=== PATIENT | female | born 1960 | race Caucasian/White ===

== ENCOUNTER 2020-05-09 20:31 | Inpatient (IN) | payer BC, SELFPAY ==
--- NOTE | ~2020-05-09 | XR_ITS ---
EXAMINATION: XR surgery orthopedic DATE: 05/10/2020 18:15 INDICATION: Intraoperative evaluation during right total hip arthroplasty TECHNIQUE: Frontal view of the right hip was obtained. COMPARISON: None. FINDINGS: Intraoperative image during a right total hip arthroplasty demonstrate placement of a femoral broach in expected position. Suggestion of a trial acetabular component which is partially obscured by a sup erimposed bolster. No fractures in the visualized bones. IMPRESSION: 1. Expected appearance during right total hip arthroplasty. Reviewed, dictated and finalized at location A.
--- NOTE | ~2020-05-09 | XR_ITS ---
EXAMINATION: XR forearm RT 2V DATE: 05/12/2020 13:32 INDICATION: Right forearm pain. Fall. TECHNIQUE: 2 views of right forearm were obtained. COMPARISON: Right elbow radiographs 05/10/2020 FINDINGS: Bone alignment is normal. There is a transverse fracture of the junction of radial head and neck with mild impaction. Joint spaces are normal. There is an elbow joint effusion. IMPRESSION: 1. Transverse fracture of the junction of radial head and neck with mild impaction. 2. Elbow joint effusion. Reviewed, dictated and finalized at location A. IMPRESSION: 1. Transverse fracture of the junction of radial head and neck with mild impact ion. 2. Elbow joint effusion.
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
--- NOTE | ~2020-05-09 | XR_ITS ---
EXAMINATION: XR elbow RT 2V DATE: 05/10/2020 09:24 INDICATION: Posterior right elbow pain. Fall. TECHNIQUE: 2 views of right elbow on 3 radiographs were obtained. COMPARISON: None. FINDINGS: Bone alignment is normal. There is a nondisplaced fracture of the junction of radial head a nd neck. Joint spaces are normal. There is an elbow joint effusion. IMPRESSION: 1. Nondisplaced fracture of the junction of radial head and neck. 2. Elbow joint effusion. Reviewed, dictated and finalized at location A.
--- NOTE | ~2020-05-09 | XR_ITS ---
EXAMINATION: XR hip RT 2V w AP pelvis DATE: 05/09/2020 21:24 INDICATION: Right hip pain post fall TECHNIQUE: Anteroposterior view of the pelvis and anteroposterior and cross-table lateral views of th e right hip were obtained. COMPARISON: None. FINDINGS: Basocervical fracture at the proximal right femur. There is proximal migration resulting in varus ang ulation along with external rotation. No other fractures identified. Mild bilateral hip osteoarthriti s. Moderate lower lumbar spondylosis. IMPRESSION: 1. Displaced and rotated basicervical fracture of the proximal right femur. Reviewed, dictated and finalized at location A.
--- NOTE | ~2020-05-09 | CT_ITS ---
EXAMINATION: CT hip RT wo con DATE: 05/09/2020 23:21 INDICATION: Right hip fracture. Possible lytic lesion on x-ray. TECHNIQUE: High resolution computed tomography (CT) of the right hip was performed without intravenou s contrast. Additional sagittal and coronal reconstructions were performed. Automated exposure contro l and iterative reconstruction technique were employed. The dose-length product was 238.10 mGy-cm. COMPARISON: None FINDINGS: Mild comminution along a basicervical fracture of the proximal right femur. There is approximately 2 cm proximal migration as well as external rotation with 25 degrees posterior angulation of the main d istal fragment relative to the proximal femoral head and neck fragment. No underlying lytic or blasti c bone lesions. Right femoral head remains normally centered in the right acetabulum with mild osteoa rthritis. No right hip joint effusion. No other fractures identified. Visualized portions of the meño ls including the appendix are unremarkable. Bladder and anteverted uterus are unremarkable. No free f luid in the pelvis. IMPRESSION: 1. Proximal migration and external rotation and a mildly comminuted basicervical fracture the proxima l right femur. No underlying lytic or blastic bone lesions. Reviewed, dictated and finalized at location A. IMPRESSION: 1. Proximal migration and external rotation and a mildly comminuted basicervica l fracture the proximal right femur. No underlying lytic or blastic bone lesion s.
--- NOTE | ~2020-05-09 | XR_ITS ---
EXAMINATION: XR hip RT min 2V DATE: 05/10/2020 19:45 INDICATION: Bipolar type right hip hemiarthroplasty. TECHNIQUE: Anteroposterior and cross-table lateral views of the right hip were obtained. COMPARISON: Intraoperative image dated 05/10/2020 at 6:09 PM FINDINGS: The previously seen femoral broach has been replaced with a bipolar type right hip hemiarthroplasty w hich is in near anatomic alignment. No fracture. Reyes catheter. Soft tissues are unremarkable. IMPRESSION: 1. Bipolar type right hip hemiarthroplasty in near-anatomic alignment. Reviewed, dictated and finalized at location A.
[2020-05-09 20:30] VITALS: BP 190/85; PULSE 120; RESP 20; TEMP 36.5; O2SAT 93
--- NOTE | 2020-05-09 20:36 | ECG_ITS ---
Measurements Intervals [place] Rate: 99 P: 61 VA: 159 QRS: 59 QRSD: 94 T: 52 QT: 329 QTc: 424 Interpretive Statements SINUS RHYTHM EARLY PRECORDIAL R/S TRANSITION BORDERLINE ST ABNORMALITY- INFERIOR LEADS BORDERLINE ECG Electronically Signed On 05-10-2020 6:57:46 CDT by Keith Vila D.O.
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
[2020-05-09] MEDS: ONDANSETRON INJ 4 MG/2 ML VIAL IV PUSH (20:42)
[2020-05-09 21:00] LABS: Basophils Percent Auto 0.5 % (0.2-1.2); Eosinophils Absolute Auto 0.2 K/mm3 (0-0.3); Eosinophils Percent Auto 2.6 % (0-4.4); Hematocrit 38.2 % (37.0-47.0); Hemoglobin 13.1 g/dL (12.0-15.0); Immature Granulocyte Absolute 0.04 K/mm3 (0.00-0.031); Immature Granulocyte Percent A 0.5 % (0-0.5); Lymphocytes Absolute Auto 1.83 K/mm3 (0.9-3.2); Lymphocytes Percent Auto 23.6 % (18.3-44.2); Mean Corpuscular HGB Conc 34.3 g/dl (32-36); Mean Corpuscular Hemoglobin 31.6 pg (26-34); Mean Corpuscular Volume 92.3 fl (80-100); Mean Platelet Volume 10.5 fl (7.4-10.4); Monocytes Absolute Auto 0.6 K/mm3 (0.1-0.6); Monocytes Percent Auto 7.9 % (2.6-8.5); Neutrophils Absolute Auto 5.1 K/mm3 (1.3-6.7); Neutrophils Percent Auto 64.9 % (45.5-73.1); Platelet Count Result 202 k/mm3 (150-375); Red Blood Count 4.14 M/mm3 (4.2-5.4); Red Cell Distribution Width 12.1 % (11.5-14.5); White Blood Count 7.8 K/mm3 (4.5-10.0)
[2020-05-09 21:07] LABS: INR 1.1; Prothrombin Time 13.7 Seconds (11.1-14.7)
[2020-05-09 21:08] LABS: Partial Thromboplastin Time 23.8 SECONDS (22.3-36.8)
[2020-05-09 21:09] LABS: Alanine Aminotransferase 22 U/L (4-35); Albumin Level 4.4 g/dL (3.5-5.1); Alkaline Phosphatase 57 U/L (38-126); Anion Gap 8 mmol/L (8-16); Aspartate Amino Transferase 23 U/L (14-36); Bilirubin,Total 0.4 mg/dL (0.2-1.3); Blood Urea Nitrogen 17 mg/dL (7-17); Calcium 9.6 mg/dL (8.4-10.2); Carbon Dioxide 24 mmol/L (22-30); Chloride 105 mmol/L (98-107); Estimated CRCL calculation 74 ml/min; Estimated Glomerular Filt Rate > 60; Glucose 114 mg/dL (65-105); Potassium 3.9 mmol/L (3.4-5.0); Sodium 137 mmol/L (137-145)
[2020-05-09 21:46] VITALS: BP 156/69; PULSE 98; RESP 18; O2SAT 97
[2020-05-09 22:19] VITALS: BP 135/72; PULSE 96; RESP 16; O2SAT 92
[2020-05-09 23:20] VITALS: BP 107/82; PULSE 96; RESP 16; O2SAT 95
[2020-05-10] VITALS (16 sets, daily range): BP systolic 120–155; BP diastolic 62–85; PULSE 79–110; RESP 16–20; TEMP 36.1–37.2; O2SAT 93–100; BMI 25.0
--- NOTE | 2020-05-10 01:14 | ADMGEN ---
This patient, Maryana Maria, was admitted to [facility] Surg Room 322-01. Patient/family oriented to hospital policies and general routines including ID bracelet, bed and alarms, visiting hours, pain management, procedures, bathroom and other care routines, personal items, smoking policy, room service/diet, and visiting hours. Valuables list has been completed. Information on how to activate the Rapid Response Team has been discussed. Patient/Family are encouraged to report perceived risks to care and to ask questions if they do not understand what they are told or what they should do.
[2020-05-10] MEDS: SODIUM CHLORIDE 0.9% IV 1,000 ML 125 ML IV CONT ×3 (01:23→21:03)
[2020-05-10] MEDS: ONDANSETRON INJ 4 MG/2 ML VIAL IV PUSH ×3 (02:00→11:05)
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
--- NOTE | 2020-05-10 14:32 | PC.NURSE ---
To OR per BED IV INFUSING WITHOUT DIFFIUCTLY [ ], I
[2020-05-10] MEDS: LACTATED RINGERS 1,000 ML 30 ML IV CONT ×2 (14:55→19:09)
--- NOTE | 2020-05-10 14:57 | WPDANESEPPF ---
Anes - Initial Pre Proc Eval Procedure: Operation Date: 05/10/20 16:00 Proposed Procedures p Right Bipolar Hip Replacement - Teo Myrick MD Date/Time: 05/10/20 14:57 Surgeon: Teo Myrick MD Pre Op Diagnosis: right closed femoral neck fracture Patient Data Age: 60 Gender: F Height: 5 ft 8 in Weight: 74.7 kg Last Vital Signs Temp 36.7 C 05/10/20 14:00 Pulse 80 05/10/20 14:00 Resp 18 05/10/20 14:00 BP 120/62 05/10/20 14:00 Pulse Ox 100 05/10/20 14:00 Allergies Allergy/AdvReac Type Severity Reaction Status Date / Time No Known Allergies Allergy Verified 05/10/20 14:55 Home Medications Medication Instructions Recorded Confirmed Type No Home Medications 05/09/20 05/10/20 History Laboratory Tests 05/09/20 05/09/20 05/09/20 20:52 20:52 20:52 WBC 7.8 K/mm3 K/mm3 (4.5-10.0) RBC 4.14 M/mm3 L M/mm3 (4.2-5.4) Hgb 13.1 g/dL g/dL (12.0-15.0) Hct 38.2 % % (37.0-47.0) MCV 92.3 fl fl (80-100) MCH 31.6 pg pg (26-34) MCHC 34.3 g/dl g/dl (32-36) RDW 12.1 % % (11.5-14.5) Plt Count 202 k/mm3 k/mm3 (150-375) MPV 10.5 fl H fl (7.4-10.4) Immature Gran % (Auto) 0.5 % % (0-0.5) Neut % (Auto) 64.9 % % (45.5-73.1) Lymph % (Auto) 23.6 % % (18.3-44.2) [place] % (Auto) 7.9 % % (2.6-8.5) Eos % (Auto) 2.6 % % (0-4.4) Baso % (Auto) 0.5 % % (0.2-1.2) Lymph # (Auto) 1.83 K/mm3 K/mm3 (0.9-3.2) [place] # (Auto) 0.6 K/mm3 K/mm3 (0.1-0.6) Eos # (Auto) 0.2 K/mm3 K/mm3 (0-0.3) Baso # (Auto) 0.0 K/mm3 K/mm3 (0.0-0.1) Abs Immat Gran (auto) 0.04 K/mm3 H K/mm3 (0.00-0.031) Absolute Neuts (auto) 5.1 K/mm3 K/mm3 (1.3-6.7) Absolute Nucleated RBC 0.0 K/mm3 K/mm3 (0.0-0.012) Nucleated RBC % 0.0 % % (0.0-0.2) PT 13.7 Seconds Seconds (11.1-14.7) INR 1.1 APTT 23.8 SECONDS SECONDS (22.3-36.8) Sodium 137 mmol/L mmol/L (137-145) Potassium 3.9 mmol/L mmol/L (3.4-5.0) Chloride 105 mmol/L mmol/L (98-107) Carbon Dioxide 24 mmol/L mmol/L (22-30) Anion Gap 8 mmol/L mmol/L (8-16) BUN 17 mg/dL mg/dL (7-17) Creatinine 0.70 mg/dL mg/dL (0.7-1.0) Estim Creat Clear Calc 74 ml/min ml/min Estimated GFR > 60 (59 - ) Glucose 114 mg/dL H mg/dL (65-105) Calcium 9.6 mg/dL mg/dL (8.4-10.2) Total Bilirubin 0.4 mg/dL mg/dL (0.2-1.3) AST 23 U/L U/L (14-36) ALT 22 U/L U/L (4-35) Alkaline Phosphatase 57 U/L U/L (38-126) Total Protein 7.0 g/dL g/dL (6.3-8.2) Albumin 4.4 g/dL g/dL (3.5-5.1) Blood Type Antibody Screen 05/10/20 08:08 WBC RBC Hgb Hct MCV MCH MCHC RDW Plt Count MPV Immature Gran % (Auto) Neut % (Auto) Lymph % (Auto) [place] % (Auto) Eos % (Auto) Baso % (Auto) Lymph # (Auto) [place] # (Auto) Eos # (Auto) Baso # (Auto) Abs Immat Gran (auto) Absolute Neuts (auto) Absolute Nucleated RBC Nucleated RBC % PT INR APTT Sodium Potassium Chloride Carbon Dioxide Anion Gap BUN Creatinine Estim Creat Clear Calc Estimated GFR Glucose Calcium Total Bilirubin AST ALT Alkaline Phosphatase Total Protein Albumin Blood Type A Negative Antibody Screen Negative Patient hx anesthesia problems: none Family hx anesthesia problems: none [facility] Past Medical History Medical History (Updated 05/10/20 @ 08:50 by Harris Wang
[2020-05-10] MEDS: SCOPOLAMINE 1.5 MG PATCH TRANSDERM (15:11)
[2020-05-10] MEDS: diphenhydrAMINE HCl INJ 50 MG/ML VIAL 25 MG IV PUSH (15:12)
[2020-05-10] MEDS: ceFAZolin 2 GM/D5W 50 ML 2 GM/50 ML BAG IVPB (16:53)
[2020-05-10] MEDS: TRANEXAMIC ACID 1,000 MG/10 ML AMPUL 1000 MG IV PUSH (17:12)
[2020-05-10] MEDS: BUPIVACAINE/EPINEPHRINE 0.25% 50 ML VIAL 40 ML INFILTRATE (17:38)
[2020-05-10] MEDS: SODIUM CHLORIDE 0.9% IV 50 ML, TRANEXAMIC ACID 1,000 MG TOPICAL (18:32)
--- NOTE | 2020-05-10 19:17 | P.OP_ITS ---
Procedure Note - Detailed Date of procedure: 05/10/20 Pre-op diagnosis: right closed femoral neck fracture Post-op diagnosis: same Procedure performed: right bipolar hip replacement Description of procedure: The patient was identified and proper site identified, then taken back to the operating room and transferred to the OR table. After general anesthetic induction and intubation, the patient was positioned in the left lateral decubitus position in the usual manner for a right hip procedure, and secured with padded hip positioner making sure the torso and extremities were properly padded. The right lower extremity was prepped and draped in the usual sterile fashion. A curvilinear incision was made over the greater trochanter and sharp dissection carried down through the subcutaneous tissue to the gluteus fascia and IT band which were divided in line with the incision. The anterior 1/2 of the abductors were sharply dissected off the greater trochanter developing the interval between the abductors and the capsule. The c apsule was divided in an inverted-T fashion exposing the fracture site. A neck cut was made about one fingerbreadth above the level of the lesser trochanter. Head fragment was removed and the acetabulum cleared of debris. The acetabulum was sized to 47 mm. The proximal femur was prepared for the size Press-Fit 11 which was verified radiographically. A real size 11 collared stem was seated. Through trialing it was noted that a 28+ 0 head with 47 cup configuration gave synagogue of leg lengths with excellent stability. The neck of the femoral component was cleaned and dried and the real components in those sizes were attached to the femoral stem. After final thorough lavage of the joint, the hip was again reduced. The capsule and linden-incisional tissues were infiltrated with 50 mL of 0.25% Marcaine and epinephrine solution. 1 g of tranexamic acid was placed deep in the wound. The capsule was repaired with #2 Ethibond suture. The abductors were repaired to the greater trochanter with #5 Ethibond suture passed through a bony bridge. The deep fascia was reapproximated with 0 looped PDS suture. Deeper layers of the subcu reapproximated with 0 looped PDS. 2-0 strata fix and tissue adhesive were used for the skin, and a sterile dressing was applied. Procedure was well tolerated and there were no known intraoperative complications. [facility] Surgeon: Teo Myrick MD Child Support Agent: Kenneth Estimated blood loss (mL): 400 Drains: No Packing: No Pathology: yes ( femoral head and neck fragments) Complications: No immediate complications Condition: stable Disposition: PACU
[2020-05-10] MEDS: ACETAMINOPHEN 325 MG TABLET 650 MG PO (21:05)
[2020-05-11] VITALS (8 sets, daily range): BP systolic 117–146; BP diastolic 49–64; PULSE 64–88; RESP 16; TEMP 36.7–37.2; O2SAT 90–100
[2020-05-11] MEDS: FAMOTIDINE 20 MG TABLET PO ×3 (00:55→20:48)
[2020-05-11] MEDS: KETOROLAC 15 MG/ML VIAL (*BKC) IV PUSH ×3 (00:56→12:58)
[2020-05-11] MEDS: ceFAZolin 2 GM/D5W 50 ML 2 GM/50 ML BAG IVPB ×3 (00:57→17:30)
[2020-05-11] MEDS: ACETAMINOPHEN 325 MG TABLET 650 MG PO ×3 (01:22→17:58)
[2020-05-11] MEDS: SODIUM CHLORIDE 0.9% IV 1,000 ML 125 ML IV CONT (05:17)
[2020-05-11 06:13] LABS: Basophils Percent Auto 0.1 % (0.2-1.2); Hematocrit 35.3 % (37.0-47.0); Hemoglobin 11.5 g/dL (12.0-15.0); Immature Granulocyte Absolute 0.01 K/mm3 (0.00-0.031); Immature Granulocyte Percent A 0.1 % (0-0.5); Lymphocytes Absolute Auto 0.71 K/mm3 (0.9-3.2); Lymphocytes Percent Auto 8.3 % (18.3-44.2); Mean Corpuscular HGB Conc 32.6 g/dl (32-36); Mean Corpuscular Hemoglobin 31.9 pg (26-34); Mean Corpuscular Volume 97.8 fl (80-100); Mean Platelet Volume 11.3 fl (7.4-10.4); Monocytes Absolute Auto 0.8 K/mm3 (0.1-0.6); Monocytes Percent Auto 9.7 % (2.6-8.5); Neutrophils Percent Auto 81.8 % (45.5-73.1); Platelet Count Result 154 k/mm3 (150-375); Red Blood Count 3.61 M/mm3 (4.2-5.4); Red Cell Distribution Width 12.2 % (11.5-14.5); White Blood Count 8.6 K/mm3 (4.5-10.0)
[2020-05-11 06:26] LABS: Anion Gap 5 mmol/L (8-16); Blood Urea Nitrogen 7 mg/dL (7-17); Calcium 8.4 mg/dL (8.4-10.2); Carbon Dioxide 26 mmol/L (22-30); Chloride 105 mmol/L (98-107); Estimated CRCL calculation 101 ml/min; Estimated Glomerular Filt Rate > 60; Glucose 110 mg/dL (65-105); Potassium 4.3 mmol/L (3.4-5.0); Sodium 136 mmol/L (137-145)
--- NOTE | 2020-05-11 08:59 | WPDANESPN ---
Anes - Prog Note Post-Op Date/Time: 05/11/20 08:59 Cardiovascular status: normal Respiratory status: normal Airway patency: baseline Mental status: baseline Post-Op hydration status: normal Vital Signs: Last Vital Signs Temp 36.7 C 05/11/20 06:00 Pulse 64 05/11/20 06:00 Resp 16 05/11/20 06:00 BP 129/58 L 05/11/20 06:00 Pulse Ox 90 05/11/20 06:16 I/O: Intake & Output 05/10/20 05/11/20 05/11/20 23:59 07:59 15:59 Intake Total 50 1290 Output Total 800 1225 Balance -750 65 Laboratory Tests 05/11/20 05:47 05/11/20 05:47 05/10/20 05/11/20 05/11/20 08:08 05:47 05:47 WBC 8.6 RBC 3.61 L Hgb 11.5 L Hct 35.3 L MCV 97.8 D MCH 31.9 MCHC 32.6 RDW 12.2 Plt Count 154 MPV 11.3 H Immature Gran % (Auto) 0.1 Neut % (Auto) 81.8 H Lymph % (Auto) 8.3 L [place] % (Auto) 9.7 H Eos % (Auto) 0.0 Baso % (Auto) 0.1 L Lymph # (Auto) 0.71 L [place] # (Auto) 0.8 H Eos # (Auto) 0.0 Baso # (Auto) 0.0 Abs Immat Gran (auto) 0.01 Absolute Neuts (auto) 7.0 H Absolute Nucleated RBC 0.0 Nucleated RBC % 0.0 Sodium 136 L Potassium 4.3 Chloride 105 Carbon Dioxide 26 Anion Gap 5 L BUN 7 D Creatinine 0.50 L Estim Creat Clear Calc 101 Estimated GFR > 60 Glucose 110 H Calcium 8.4 Blood Type A Negative Antibody Screen Negative Post-procedural complaints: none Patient Feedback: Patient satisfied with anesthetic care.
--- NOTE | 2020-05-11 11:22 | PM.PNORT ---
Progress Note: A&P Assessment and Plan (1) Closed basicervical fracture of neck of right femur: Qualifiers: Encounter type: initial encounter Fracture alignment: displaced Qualified Code(s): S72.041A - Displaced fracture of base of neck of right femur, initial encounter for closed fracture Code(s): S72.041A - Displaced fracture of base of neck of right femur, initial encounter for closed fracture Status: Acute Assessment and Plan: 60-year-old female with a right bipolar hip replacement for displaced femoral neck fracture. Surgery was discussed with her in detail. PT and OT have been initiated. TRC consult is underway. I think that she just has a forearm contusion and does not have an acute radial head fracture. Currently using Xarelto for DVT prophylaxis. She is getting scheduled Tylenol and then for narcotic, p.r.n. oxycodone. I appreciate the hospitalist input. Subjective Subjective Date/Time Seen: 05/11/20 11:22 Post Op day: 1 Principal diagnosis: Status post right bipolar hip replacement Interval history: 60-year-old female postop day one right bipolar hip replacement. Experiencing some hip discomfort on the right and forearm discomfort on the right. Had a decent night though. Review of Systems Constitutional: Constitutional: Denies chills and Denies fever(s) Eyes: Eyes: Reports no additional eye complaints ENT: Reports system reviewed and no additional complaints, except as documented Cardiovascular: Cardiovascular: Denies chest pain and Denies dyspnea on exertion Respiratory: Respiratory: Reports no additional respiratory complaints and Denies dyspnea on exertion Gastrointestinal: Gastrointestinal: Denies abdominal pain and Denies bloating Exam Const: General: cooperative, no acute distress and alert Nutritional Appearance: other Orientation/consciousness: patient oriented x3 Limitations: no limitations HENMT: Head: normal to inspection Ears: hearing grossly normal bilaterally Face and sinus: face symmetric Mouth: Yes moist mucous membranes Teeth and gingiva: fair dentition Eyes: Alignment and Position: alignment normal and position normal Sclera: sclerae normal Neck: Neck: normal visual inspection and nontender Chest: Chest palpation & inspection: normal inspection of the chest Resp: Effort & Inspection: normal respiratory effort and able to speak in complete sentences GI: Inspection: other ( nontender, nondistended) Skin: General skin exam: normal color Rashes: no rashes Neuro: General: patient oriented x3 Cognition (Neuro): normal cognition Speech: normal speech Gait exam (Neuro): Other gait observations present Motor exam (neuro): Other motor observations present ( no focal motor or sensory deficit in extremities) Sensory Exam: normal sensation Extrem: General: normal to inspection and other Other: Exam of her right forearm reveals some bruising and tenderness particularly dorsally. No tenderness along the osseous portion of the proximal radius or ulna. (I am aware of the elbow x-ray report however looking at it myself I think that what we are seeing is actually little bit of spur at the margin of the radial head.) Neurovascular status to the right upper extremity is unremarkable. In the right lower extremity, there are no sensory deficits. She has grossly intact motor function however exam limited secondary to her discomfort about the right hip. Right hip incision is clean and dry with no erythema and very little swelling noted. Calves nontender. Psych: Appearance: grossly normal Mental Status: mental status grossly normal Objective Data Vital Signs Vital Signs: Vital Signs - 24 hr 05/10/20 14:00 05/10/20 14:55 05/10/20 19:09 Temperature 98.1 F 97.9 F 97 F L Pulse Rate 80 95 97 Respiratory Rate 18 16 19 Blood Pressure 120/62 150/70 H 133/76 Pulse Oximetry 100 100 100 05/10/20 19:24 05/10/20 19:34 05/10/20 19:49 Temperature Pulse Ra
[2020-05-11] MEDS: DOCUSATE SODIUM 100 MG CAPSULE PO ×2 (12:57→17:47)
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
[2020-05-11] MEDS: RIVAROXABAN 10 MG TABLET PO (17:47)
[2020-05-12] MEDS: ACETAMINOPHEN 325 MG TABLET 650 MG PO ×4 (00:08→15:38)
[2020-05-12 06:00] VITALS: BP 139/60; PULSE 90; RESP 16; TEMP 37.2; O2SAT 98
[2020-05-12 08:00] VITALS: PULSE 90; RESP 16; O2SAT 98
--- NOTE | 2020-05-12 08:42 | PCPTNOTE ---
Spoke w/ Dr Myrick. Stated okay to be WBAT on RUE and ice as needed.
[2020-05-12] MEDS: FAMOTIDINE 20 MG TABLET PO (09:10)
[2020-05-12] MEDS: DOCUSATE SODIUM 100 MG CAPSULE PO ×2 (09:10→15:39)
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
--- NOTE | 2020-05-12 13:07 | PM.PNORT ---
Progress Note: A&P Assessment and Plan (1) Forearm contusion: Qualifiers: Encounter type: subsequent encounter Laterality: right Qualified Code(s): S50.11XD - Contusion of right forearm, subsequent encounter Code(s): S50.10XA - Contusion of unspecified forearm, initial encounter Status: Acute Assessment and Plan: Check right forearm x-ray today. Still okay to go to the [facility]. (2) Closed basicervical fracture of neck of right femur: Qualifiers: Encounter type: initial encounter Fracture alignment: displaced Qualified Code(s): S72.041A - Displaced fracture of base of neck of right femur, initial encounter for closed fracture Code(s): S72.041A - Displaced fracture of base of neck of right femur, initial encounter for closed fracture Status: Acute Assessment and Plan: Transfer to the [facility] to continue rehab. Discussed fully with the patient and her . I will follow her there as well. Subjective Subjective Date/Time Seen: 05/12/20 13:07 Post Op day: 2 Principal diagnosis: Status post right bipolar replacement Interval history: 60-year-old female postop day two right bipolar replacement. Significant improvement from yesterday. Is still experiencing pain in her right hip but also in her right distal forearm. Right elbow is nontender. Review of Systems Review of Systems: All systems reviewed & are unremarkable except as noted in HPI and below Constitutional: Constitutional: Denies chills and Denies fever(s) Eyes: Eyes: Reports no additional eye complaints ENT: Reports system reviewed and no additional complaints, except as documented Cardiovascular: Cardiovascular: Denies chest pain and Denies dyspnea on exertion Respiratory: Respiratory: Reports no additional respiratory complaints and Denies dyspnea on exertion Gastrointestinal: Gastrointestinal: Denies abdominal pain and Denies bloating Exam Const: General: cooperative, no acute distress and alert Nutritional Appearance: other Orientation/consciousness: patient oriented x3 Limitations: no limitations HENMT: Head: normal to inspection Ears: hearing grossly normal bilaterally Face and sinus: face symmetric Mouth: Yes moist mucous membranes Teeth and gingiva: fair dentition Eyes: Alignment and Position: alignment normal and position normal Sclera: sclerae normal Neck: Neck: normal visual inspection and nontender Chest: Chest palpation & inspection: normal inspection of the chest Resp: Effort & Inspection: normal respiratory effort and able to speak in complete sentences GI: Inspection: other Skin: General skin exam: normal color Rashes: no rashes Neuro: General: patient oriented x3 Cognition (Neuro): normal cognition Speech: normal speech Gait exam (Neuro): Other gait observations present Motor exam (neuro): Other motor observations present ( No focal motor deficit right lower extremity) Sensory Exam: normal sensation Extrem: General: normal to inspection and other Other: Exam of the right hip wound shows it to be well apposed with no drainage. No erythema and only minimal swelling appreciated. Calves negative. Tenderness in the right distal forearm radial aspect particularly with supination. Specifically no tenderness to palpation proximally over the radial head and neck. Neurovascular status right upper extremity intact. Right forearm compartment supple. Extensive bruising in the right forearm Psych: Appearance: grossly normal Mental Status: mental status grossly normal Objective Data Vital Signs Vital Signs: Vital Signs - 24 hr 05/11/20 14:00 05/11/20 20:00 05/11/20 21:46 Temperature 98.9 F 98.2 F Pulse Rate 88 88 83 Respiratory Rate 16 16 16 Blood Pressure 134/55 L 117/49 L Pulse Oximetry 100 100 99 05/12/20 06:00 05/12/20 08:00 Temperature 99.0 F Pulse Rate 90 90 Respiratory Rate 16 16 Blood Pressure 139/60 Pulse Oximetry 98 98 Intake/Out
--- NOTE | 2020-05-12 13:21 | PM.DS ---
DS: Admitting Diagnosis Admitting Diagnosis Admitting Diagnosis: right closed femoral neck fracture DS: Discharge Diagnosis Discharge Diagnosis (1) Closed basicervical fracture of neck of right femur: Qualifiers: Encounter type: initial encounter Fracture alignment: displaced Qualified Code(s): S72.041A - Displaced fracture of base of neck of right femur, initial encounter for closed fracture Code(s): S72.041A - Displaced fracture of base of neck of right femur, initial encounter for closed fracture Status: Acute (2) Forearm contusion: Qualifiers: Encounter type: subsequent encounter Laterality: right Qualified Code(s): S50.11XD - Contusion of right forearm, subsequent encounter Code(s): S50.10XA - Contusion of unspecified forearm, initial encounter Status: Acute Assessment and Plan: transfer to [facility] to continue rehab. Checking right forearm x-ray. DS: Summary Hospital Course Reason for hospitalization: For surgical repair of right hip fracture Hospital Course: following the patient's surgery she was admitted to the floor and began therapy. She made good progress and is going to be transferred to the rehab floor Status at Discharge Cognitive/behavioral status at discharge: alert and oriented Functional status at discharge: uses cane/walker Overall status at discharge: patient is progressing back to baseline Time Spent with Patient Time attestation: Total time spent providing and/or coordinating discharge services: Exam Const: General: cooperative, no acute distress and alert Nutritional Appearance: other Orientation/consciousness: patient oriented x3 Limitations: no limitations HENMT: Head: normal to inspection Ears: hearing grossly normal bilaterally Face and sinus: face symmetric Mouth: Yes moist mucous membranes Teeth and gingiva: fair dentition Eyes: Alignment and Position: alignment normal and position normal Sclera: sclerae normal Neck: Neck: normal visual inspection and nontender Chest: Chest palpation & inspection: normal inspection of the chest Resp: Effort & Inspection: normal respiratory effort and able to speak in complete sentences GI: Inspection: other Skin: General skin exam: normal color Rashes: no rashes Neuro: General: patient oriented x3 Cognition (Neuro): normal cognition Speech: normal speech Gait exam (Neuro): Other gait observations present Motor exam (neuro): Other motor observations present ( No focal motor deficit right lower extremity) Sensory Exam: normal sensation Extrem: General: normal to inspection and other Other: Exam of the right hip wound shows it to be well apposed with no drainage. No erythema and only minimal swelling appreciated. Calves negative. Tenderness in the right distal forearm radial aspect particularly with supination. Specifically no tenderness to palpation proximally over the radial head and neck. Neurovascular status right upper extremity intact. Right forearm compartment supple. Extensive bruising in the right forearm Psych: Appearance: grossly normal Mental Status: mental status grossly normal DS: Data Data Completed and Pending Pending studies at discharge: Pending at discharge 05/10/20 17:48 Surgical [PTH] Routine Discharge Plan Discharge Consulting providers: Rima Silva ; Teo Myrick ; Reagan Marques Discharging Clinician: Teo Myrick Anticipated Discharge Date/Time: 05/12/20 13:14 Patient Disposition: Inpatient Rehab Facility Activity: may shower and other - see discharge instructions Diet: regular Wound Care Instructions: remove dressing to shower Discharge Instructions: 3 times daily for 20 minutes each time, reclining in bed with ice packs over the incision and a pillow underneath the affected calf. Your wound is glued so it is okay to get into the shower and get the wound wet. Be sure to read through all the information that narinder
[2020-05-12 14:00] VITALS: BP 118/54; PULSE 89; RESP 16; TEMP 37; O2SAT 99
[2020-05-12] MEDS: RIVAROXABAN 10 MG TABLET PO (15:38)
== END 2020-05-12 15:45 | DRG 470 ==
LOC: ANHED 23:48 → ANH3MEDSUR 05-10 00:14
PROVIDERS: Admitting Provider Orthopaedic Surgery; Emergency Provider General Practice; Visit Provider Orthopaedic Surgery
PROC: 0SRR01A Replacement of Right Hip Joint, Femoral Surface with Metal Synthetic Substitute, Uncemented, Open Approach (ICD-10-PCS; CPT 27125; principal; 2020-05-10 16:00)
DX: S72.041A Displaced fracture of base of neck of right femur, initial encounter for closed fracture (principal); R03.0 Elevated blood-pressure reading, without diagnosis of hypertension; S50.11XA Contusion of right forearm, initial encounter; R09.02 Hypoxemia; T40.605A Adverse effect of unspecified narcotics, initial encounter; Z87.891 Personal history of nicotine dependence; V19.9XXA Pedal cyclist (driver) (passenger) injured in unspecified traffic accident, initial encounter; Y93.55 Activity, bike riding
CPT/HCPCS: 36415; 71045; 73070; 73090; 73502; 73700; 80048; 80053; 85025; 85610; 85730; 86850; 86900; 86901; 88305; 88307; 88311; 93005; 96365; 96375; 96376; 97110; 97116; 97161; 97165; 97530; 97535; 99285; A9270; C1713; C1776; J0131; J0690; J1100; J1170; J1200; J1885; J2250; J2405; J2704; J3010; J7030; J7120

== ENCOUNTER 2020-05-12 15:47 | IRF | payer BC, SELFPAY ==
--- NOTE | ~2020-05-12 | US_ITS ---
EXAMINATION: US venous doppler LE RT EXAM DATE: 05/17/2020 12:28 INDICATION: Right leg pain and swelling. TECHNIQUE: Multiple grayscale, color flow and Doppler images of the right lower extremity deep venous system were obtained and reviewed. There is no prior study for comparison. FINDINGS: The right common femoral, femoral and profunda veins demonstrate normal color flow, respira tory variation, augmentation and compressibility. Compressibility, color flow confirmed within the r ight popliteal, posterior tibial, peroneal, and greater saphenous veins. IMPRESSION: 1. No right lower extremity deep venous thrombosis. Reviewed, dictated and finalized at location A.
[2020-05-12 15:40] VITALS: BP 120/56; PULSE 94; RESP 18; TEMP 36.8; O2SAT 100; BMI 25.0
--- NOTE | 2020-05-12 16:16 | PC.NURSE ---
This patient, Maryana Maria, was admitted to [facility] Room 226-01. Patient/family oriented to hospital policies and general routines including ID bracelet, bed and alarms, visiting hours, pain management, procedures, bathroom and other care routines, personal items, smoking policy, room service/diet, and visiting hours. Valuables list has been completed. Information on how to activate the Rapid Response Team has been discussed. Patient/Family are encouraged to report perceived risks to care and to ask questions if they do not understand what they are told or what they should do.
[2020-05-12 18:15] VITALS: BMI 25.0
[2020-05-12] MEDS: DOCUSATE SODIUM 100 MG CAPSULE PO (19:55)
[2020-05-12] MEDS: ACETAMINOPHEN 325 MG TABLET 650 MG PO (19:55)
[2020-05-12 20:33] VITALS: BP 137/64; PULSE 102; RESP 18; TEMP 37.2; O2SAT 100
[2020-05-13] MEDS: ACETAMINOPHEN 325 MG TABLET 650 MG PO ×4 (02:16→16:51)
[2020-05-13 04:52] LABS: Basophils Percent Auto 0.4 % (0.2-1.2); Eosinophils Absolute Auto 0.2 K/mm3 (0-0.3); Eosinophils Percent Auto 2.2 % (0-4.4); Hematocrit 29.8 % (37.0-47.0); Hemoglobin 9.9 g/dL (12.0-15.0); Immature Granulocyte Absolute 0.02 K/mm3 (0.00-0.031); Immature Granulocyte Percent A 0.3 % (0-0.5); Lymphocytes Absolute Auto 0.82 K/mm3 (0.9-3.2); Lymphocytes Percent Auto 11.4 % (18.3-44.2); Mean Corpuscular HGB Conc 33.2 g/dl (32-36); Mean Corpuscular Hemoglobin 31.4 pg (26-34); Mean Corpuscular Volume 94.6 fl (80-100); Monocytes Absolute Auto 0.9 K/mm3 (0.1-0.6); Neutrophils Absolute Auto 5.2 K/mm3 (1.3-6.7); Neutrophils Percent Auto 72.7 % (45.5-73.1); Platelet Count Result 161 k/mm3 (150-375); Red Blood Count 3.15 M/mm3 (4.2-5.4); Red Cell Distribution Width 12.3 % (11.5-14.5); White Blood Count 7.2 K/mm3 (4.5-10.0)
[2020-05-13 05:02] LABS: Anion Gap 5 mmol/L (8-16); Blood Urea Nitrogen 6 mg/dL (7-17); Calcium 8.1 mg/dL (8.4-10.2); Carbon Dioxide 27 mmol/L (22-30); Chloride 103 mmol/L (98-107); Estimated CRCL calculation 122 ml/min; Estimated Glomerular Filt Rate > 60; Glucose 112 mg/dL (65-105); Potassium 3.4 mmol/L (3.4-5.0); Sodium 135 mmol/L (137-145)
[2020-05-13 05:27] VITALS: BP 117/48; PULSE 89; RESP 18; TEMP 36.9; O2SAT 97
[2020-05-13 06:02] LABS: Atypical Lymphocytes Present; Platelet Estimate Adequate (Adequate)
[2020-05-13 08:00] VITALS: PULSE 89; RESP 18; O2SAT 97
[2020-05-13] MEDS: DOCUSATE SODIUM 100 MG CAPSULE PO ×2 (08:41→16:04)
[2020-05-13] MEDS: RIVAROXABAN 10 MG TABLET PO (08:41)
--- NOTE | 2020-05-13 11:00 | PCCCNOTE ---
On 05/13/20, the student, [Daniel Escobar ], provided care and completed [facility] documentation on this patient. I have reviewed the student's documentation and agree with the findings.
[2020-05-13 13:25] VITALS: BMI 25.0
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
--- NOTE | 2020-05-13 13:42 | RPD ---
INDIVIDUALIZED PLAN OF CARE FOR Maryana Maria Brief Synthesis of Pre-Admission Screen, Post-Admission Evaluation and Therapy Evaluations: The patient presents to rehab with Displaced fracture of base of neck of right femur. Comorbidities include mild arthritis in her right hip, s/p fall, pain, non-displaced fracture of the junction. The patient requires physician services for medical oversight, management of postop complications in setting of present comorbidities, and pain management. She will be followed at least three times a week by the rehabilitation physician. Orthopedics may see the patient at the frequency of their discretion. Labs will be drawn to monitor blood counts and electrolytes periodically. The patient requires nursing services for DVT prophylactics, infection protection, medication management and education, pressure relief, and wound care. Deficits include:ADLs, Balance, Endurance, Family Training/Education, Mobility, Pain Management, ROM, Safety, Strength, Transfers Trainer/Case Management for: Discharge Planning and Patient/Family Counseling Physical Therapy: 5 days per week for 90 minutes. Treatments may include: Therapeutic Exercise, Gait Training, Neuromuscular Re-education, Transfer Training, Community Reintegration, Bed Mobility, Patient/Family Education, Wheelchair Mobility Group Therapy/Concurrent Therapy Rationales: -Improve attention span during functional activities in a distracted environment. -Enhance problem solving and/or adequate judgment skills during functional activities in a distracted environment. -Promote increased safety awareness in a distracted environment to reduce fall risk with functional tasks, transfers, and ambulation to allow a more safe, self-sufficient return to the home environment. -Improve dynamic balance skills to promote safety and independence with functional activities in a distracted environment for maximum gain. Occupational Therapy: 5 days per week for 90 minutes. Treatments may include: Therapeutic Exercise, Therapeutic Activity, Cognitive Training, Self-Care Transfer Training, Community Reintegration, Home Management, Patient/Family Education, Wheelchair Mobility Training, Energy Conservation Training Group Therapy/Concurrent Therapy Rationales: -Allow therapist to observe and teach generalization and carry-over of skills learned in individual therapy. -Enhance problem solving and sequencing skills during therapeutic activities in a distracted environment. -Promote increased safety awareness in a realistic setting to reduce fall risk with functional tasks due to visual and verbal distractions. -Increase functional level with ADLs, ADL transfers and use of adaptive equipment through therapeutic activities with others while promoting safety to allow a more safe, self-sufficient return home. Medical Prognosis: Good Anticipated Length of Stay: 12 days Rehab Goals: Eating Goal: 06-Independent Oral Hygiene Goal: 06-Independent Toileting Hygiene Goal: 06-Independent Shower/Bathe Self Goal: 06-Independent Upper Body Dressing Goal: 06-Independent Lower Body Dressing Goal: 06-Independent Putting On/Taking Off Footwear Goal: 06-Independent Rolling Left and Right Goal: 06-Independent Sit to Lying Goal: 06-Independent Lying to Sitting on Side of Bed Goal: 06-Independent Sit to Stand Goal: 06-Independent Chair/[place] Transfer Goal: 06-Independent Toilet Transfer Goal: 06-Independent Car Transfer Goal: 06-Independent Walk 10' Goal: 06-Independent Walk 50' with Two Turns Goal: 06-Independent Walk 150' Goal: 06-Independent Walk 10' on Uneven Surface Goal: 06-Independent 1 Step (Curb) Goal: 06-Independent 4 Steps Goal: 06-Independent 12 Steps Goal Score: 06-Independent Picking Up Object Goal: 06-Independent Wheel 50' with Two Turns Score: 06-Independent Wheel 150' Goal: 06-Independent Anticipated discharge destination: Home
[2020-05-13 14:00] VITALS: BP 114/51; PULSE 93; RESP 19; TEMP 36.7; O2SAT 98
[2020-05-13] MEDS: BISACODYL 5 MG TABLET EC PO (16:03)
[2020-05-13 22:00] VITALS: BP 127/48; PULSE 99; RESP 20; TEMP 36.6; O2SAT 100
[2020-05-14] MEDS: ACETAMINOPHEN 325 MG TABLET 650 MG PO ×4 (00:01→18:44)
[2020-05-14 06:00] VITALS: BP 121/53; PULSE 88; RESP 18; TEMP 37.2; O2SAT 100
[2020-05-14] MEDS: DOCUSATE SODIUM 100 MG CAPSULE PO ×2 (08:44→16:30)
[2020-05-14] MEDS: polyethylene glycoL 3350 17 GM POWD.PACK PO (08:44)
[2020-05-14] MEDS: RIVAROXABAN 10 MG TABLET PO (08:44)
[2020-05-14 14:00] VITALS: BP 106/49; PULSE 87; RESP 19; TEMP 36.6; O2SAT 99
--- NOTE | 2020-05-14 15:00 | PM.CNOR ---
Assessment and Plan Assessment and plan (1) Forearm contusion: Qualifiers: Encounter type: subsequent encounter Laterality: right Qualified Code(s): S50.11XD - Contusion of right forearm, subsequent encounter Code(s): S50.10XA - Contusion of unspecified forearm, initial encounter Status: Acute (2) Closed basicervical fracture of neck of right femur: Qualifiers: Encounter type: initial encounter Fracture alignment: displaced Qualified Code(s): S72.041A - Displaced fracture of base of neck of right femur, initial encounter for closed fracture Code(s): S72.041A - Displaced fracture of base of neck of right femur, initial encounter for closed fracture Status: Acute Assessment and Plan: 60-year-old female postop day four right hip bipolar replacement and doing well. I will continue to follow along while she is in the hospital. Regarding formed contusion, I think that this is going to continue to improve and no restrictions placed on her right arm. History of Present Illness HPI Consult date: 05/14/20 Consult reason: other (Recent surgery) Chief complaint: displaced fracture of base of neck of right femur Narrative: 60-year-old female who is postop day four for a displaced right femoral neck fracture treated with a bipolar hip replacement. She is doing quite well. She also has a contused forearm which is improved rapidly . X-ray interpretation is that she has a radial neck fracture however clinically that is not the case. What I think is on the x-ray is marginal spur at the radial head. Review of Systems Review of Systems: All systems reviewed & are unremarkable except as noted in HPI and below Constitutional: Constitutional: Denies chills and Denies fever(s) Eyes: Eyes: Reports no additional eye complaints ENT: Reports system reviewed and no additional complaints, except as documented Cardiovascular: Cardiovascular: Denies chest pain and Denies dyspnea on exertion Respiratory: Respiratory: Reports no additional respiratory complaints and Denies dyspnea on exertion Gastrointestinal: Gastrointestinal: Denies abdominal pain and Denies bloating PMFSH Past Medical History Medical History Patient denies medical problems Surgical History Surgical History Closed basicervical fracture of neck of right femur right bipolar replacement April 2020 No significant past surgical history Family History Family History Mother Cerebrovascular accident Hypertension Father Hodgkins disease Sibling Carcinoma of colon Social History Social History Social History: Patient lives at home with her . 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 She quit tobacco 30 years ago after smoking up to 1/4 a pack a day for 14 years. She drinks 3-4 alcoholic drinks a week. No drug use. She is full code. She nominates her to be the individual who would make medical decisions for her if she is unable. Years smoked: 30 Smoking status: Former smoker Alcohol intake: current Drinks per week: 3 Substance use: never Spiritual care concerns: No Meds Home Medications and Allergies Home Medications Medication Instructions Recorded Confirmed Type acetaminophen [Mapap 650 mg PO Q6HR 5 Days #0 tablet 05/12/20 05/12/20 Rx (acetaminophen)] alum-mag hydroxide-simeth [Mag-Al 30 ml PO Q6H PRN 5 Days #0 ml 05/12/20 05/12/20 Rx Plus] docusate sodium 100 mg PO BID 5 Days #0 cap 05/12/20 05/12/20 Rx oxycodone 5 mg PO Q4H PRN #0 tablet 05/12/20 05/12/20 Rx rivaroxaban [Xarelto] 10 mg PO DAILY #12 tablet 05/12/20 05/12/20 Rx Allergies Allergy/AdvReac Type Severity Reaction Status Date / Time No Known Allergies Allergy Verifi
[2020-05-14] MEDS: traMADol HCL 50 MG TABLET PO ×2 (16:27→20:30)
--- NOTE | 2020-05-14 16:45 | WPDNEURORHBP ---
Subjective Date/time seen: 05/14/20 16:45 Interval history: this 60-year-old woman is here is status post fall with a hip fracture and followed by the right bipolar hip replacement by Dr. Myrick who is following her periodically and in fact her complain of the pain is the 1 for which she does not like to be taking the oxycodone and she wants something else to try as oxycodone is having or giving her side effects she also complaining of right forearm pain for which the x-ray was performed Dr. pedroza feels this is not a fracture of radial head but radial spur Patient denies any headache nausea vomiting chest pain shortness of breath fever chills sore throat Review of Systems Review of Systems: All systems reviewed & are unremarkable except as noted in HPI and below Functional Status Ambulation Ability Ability to Ambulate 10 Feet: Minimum Assistance X 1 Ambulation Assistive Devices: Parallel Bars Transfers Ability Ability to Transfer In/Out of Chair: Minimum Assistance X 1 Exam Const: General: comfortable and no acute distress HENMT: General nose exam: Normal nares present Mouth: Yes moist mucous membranes Eyes: General: appearance normal, both eyes and all related structures Neck: Neck: supple and no JVD Resp: Effort & Inspection: normal respiratory effort Auscultation: clear to auscultation bilaterally Cardio: Rate: regular rate Rhythm: regular rhythm GI: GI Palp: Yes Soft to palpation Auscultation: normal bowel sounds Skin: General skin exam: normal color and no rashes or lesions noted Neuro: Other: patient is awake alert well oriented following all commands quite well the inability to perform the activities of daily living is directly related to the surgery for the hip fracture and she needs assistance at this point in all activities of daily living Extrem: Other: bruising of the right forearm all the way up to the elbow level Psych: Mental Status: mental status grossly normal Objective Data Vital Signs Vital Signs: Vital Signs - 24 hr 05/13/20 22:00 05/14/20 06:00 05/14/20 14:00 Temperature 36.6 C 37.2 C 36.6 C Pulse Rate 99 88 87 Respiratory Rate 20 18 19 Blood Pressure 127/48 L 121/53 L 106/49 L Pulse Oximetry 100 100 99 Intake/Output Intake/Output: Intake & Output 05/11/20 05/12/20 05/13/20 05/14/20 23:59 23:59 23:59 23:59 Intake Total 240 720 600 Balance 240 720 600 Meds/Results Medications: Active Medications Generic Name Dose Route Start Last Admin Trade Name Freq PRN Reason Stop Dose Admin Acetaminophen 650 mg 05/12/20 18:00 05/14/20 12:08 Tylenol Tablet PO 05/17/20 12:01 650 mg Q6HR RHIANNON Administration Acetaminophen 650 mg 05/17/20 18:00 Tylenol Tablet PO Q6H PRN Mild Pain (1-3) Al Hydrox/Mg Hydrox/Simethicone 30 ml 05/12/20 16:24 Mylanta PO Q6H PRN Indigestion Aspirin 325 mg 05/23/20 08:00 Aspirin Ec PO 06/20/20 08:01 DAILY@0800 RHIANNON Bisacodyl 5 mg 05/13/20 15:11 05/13/20 16:03 Dulcolax Tab PO 5 mg QAM PRN Administration Constipation Docusate Sodium 100 mg 05/12/20 17:00 05/14/20 16:30 Colace Capsule PO 100 mg BID RHIANNON Administration Polyethylene Glycol 17 gm 05/14/20 09:00 05/14/20 08:44 Miralax PO 17 gm QAM RHIANNON Administration Rivaroxaban 10 mg 05/13/20 09:00 05/14/20 08:44 Xarelto PO 05/22/20 23:59 10 mg DAILY RHIANNON Administration Tramadol HCl 50 mg 05/14/20 15:51 05/14/20 16:27 Ultram PO 50 mg Q4H PRN Administration Pain Rated 6 or Greater Progress Note: A&P Assessment and Plan (1) Forearm contusion: Qualifiers: Encounter type: subsequent encounter Laterality: right Qualified Code(s): S50.11XD - Contusion of right forearm, subsequent encounter Code(s): S50.10XA - Contusion of unspecified forearm, initial encounter Status: Acute (2) Hypoxia: Code(s): R09.02 - Hypoxemia Status: Acute (3) DVT pro
[2020-05-14 22:00] VITALS: BP 120/50; PULSE 86; RESP 20; TEMP 36.8; O2SAT 97
[2020-05-15] MEDS: ACETAMINOPHEN 325 MG TABLET 650 MG PO ×4 (00:04→17:53)
[2020-05-15] MEDS: traMADol HCL 50 MG TABLET PO ×3 (04:35→16:24)
[2020-05-15 06:00] VITALS: BP 117/50; PULSE 84; RESP 20; TEMP 36.3; O2SAT 100
[2020-05-15] MEDS: DOCUSATE SODIUM 100 MG CAPSULE PO ×2 (09:19→17:23)
[2020-05-15] MEDS: RIVAROXABAN 10 MG TABLET PO (09:19)
[2020-05-15] MEDS: HYDROCORTISONE 2.5% CREAM 30 GM TUBE 1 APPLIC TOPICAL ×2 (09:19→21:20)
[2020-05-15] MEDS: polyethylene glycoL 3350 17 GM POWD.PACK PO (09:19)
--- NOTE | 2020-05-15 11:31 | PCPTNOTE ---
Per orthopedic consultation note from 05/14/20 with patient stated patient has no restrictions on R arm. Have notified appropriate therapist and nursing staff along with patient for updated care. Per patient who stated informed her yesterday she was clear for WBAT without placing 100% through R UE per fx. Will continue therapy per this new information updating to WBAT on R UE.
[2020-05-15 14:00] VITALS: BP 101/51; PULSE 80; RESP 19; TEMP 36.6; O2SAT 98
--- NOTE | 2020-05-15 18:47 | WPDNEURORHBP ---
Subjective Date/time seen: 05/15/20 18:47 Interval history: this 60-year-old woman is here status post right bipolar hemiarthroplasty along with right forearm contusion she is complaining of rash with itching which possibly could be related to tramadol which was initiate yesterday otherwise her pain control is fairly decent at this time she denies any headache nausea vomiting chest pain shortness of breath fever chills sore throat Review of Systems Review of Systems: All systems reviewed & are unremarkable except as noted in HPI and below Functional Status Ambulation Ability Ability to Ambulate 10 Feet: Contact Guard Ability to Ambulate 50 Feet With 2 Turns: Contact Guard Ambulation Assistive Devices: Walker, Wheeled Transfers Ability Ability to Transfer In/Out of Chair: Minimum Assistance X 1 Exam Const: General: comfortable and no acute distress HENMT: General nose exam: Normal nares present Mouth: Yes moist mucous membranes Eyes: General: appearance normal, both eyes and all related structures Neck: Neck: supple and no JVD Resp: Effort & Inspection: normal respiratory effort Auscultation: clear to auscultation bilaterally Cardio: Rate: regular rate Rhythm: regular rhythm GI: GI Palp: Yes Soft to palpation Auscultation: normal bowel sounds Skin: Other: patient is a rash primarily at the lower back and also around the abdomen which possibly could be related to drug meaning tramadol that was the most recent added Neuro: Other: patient's mental status is normal cranial exam shows normal the weakness is related to the post surgical that is also improving Extrem: General: normal to inspection Psych: Mental Status: mental status grossly normal Objective Data Vital Signs Vital Signs: Vital Signs - 24 hr 05/14/20 22:00 05/15/20 06:00 05/15/20 14:00 Temperature 36.8 C 36.3 C L 36.6 C Pulse Rate 86 84 80 Respiratory Rate 20 20 19 Blood Pressure 120/50 L 117/50 L 101/51 L Pulse Oximetry 97 100 98 Intake/Output Intake/Output: Intake & Output 05/12/20 05/13/20 05/14/20 05/15/20 23:59 23:59 23:59 23:59 Intake Total 240 720 840 960 Balance 240 720 840 960 Meds/Results Medications: Active Medications Generic Name Dose Route Start Last Admin Trade Name Freq PRN Reason Stop Dose Admin Acetaminophen 650 mg 05/12/20 18:00 05/15/20 17:53 Tylenol Tablet PO 05/17/20 12:01 650 mg Q6HR RHIANNON Administration Acetaminophen 650 mg 05/17/20 18:00 Tylenol Tablet PO Q6H PRN Mild Pain (1-3) Hydrocodone Bitart/Acetaminophen 1 - 2 tab 05/15/20 17:32 [place] 5-325 Mg PO Q4H PRN Pain Al Hydrox/Mg Hydrox/Simethicone 30 ml 05/12/20 16:24 Mylanta PO Q6H PRN Indigestion Aspirin 325 mg 05/23/20 08:00 Aspirin Ec PO 06/20/20 08:01 DAILY@0800 RHIANNON Bisacodyl 5 mg 05/13/20 15:11 05/13/20 16:03 Dulcolax Tab PO 5 mg QAM PRN Administration Constipation Diphenhydramine HCl 25 mg 05/15/20 17:32 Benadryl Cap PO Q6H PRN Itching Docusate Sodium 100 mg 05/12/20 17:00 05/15/20 17:23 Colace Capsule PO 100 mg BID RHIANNON Administration Hydrocortisone 1 applic 05/15/20 09:00 05/15/20 09:19 Hydrocortisone 2.5% Cream TOPICAL 1 applic Q12HR RHIANNON Administration Polyethylene Glycol 17 gm 05/14/20 09:00 05/15/20 09:19 Miralax PO 17 gm QAM RHIANNON Administration Rivaroxaban 10 mg 05/13/20 09:00 05/15/20 09:19 Xarelto PO 05/22/20 23:59 10 mg DAILY RHIANNON Administration Progress Note: A&P Assessment and Plan (1) Forearm contusion: Qualifiers: Encounter type: subsequent encounter Laterality: right Qualified Code(s): S50.11XD - Contusion of right forearm, subsequent encounter Code(s): S50.10XA - Contusion of unspecified forearm, initial encounter Status: Acute (2) DVT prophylaxis: Code(s): Z29.9 - Encounter for prophylactic measures, unspecified Status: A
[2020-05-15 20:53] VITALS: BP 109/50; PULSE 92; RESP 18; TEMP 36.6; O2SAT 99
[2020-05-16 05:22] VITALS: BP 116/42; PULSE 85; RESP 18; TEMP 36.9; O2SAT 98
[2020-05-16] MEDS: ACETAMINOPHEN 325 MG TABLET 650 MG PO ×2 (06:05→17:12)
[2020-05-16] MEDS: polyethylene glycoL 3350 17 GM POWD.PACK PO (07:42)
[2020-05-16] MEDS: RIVAROXABAN 10 MG TABLET PO (07:42)
[2020-05-16] MEDS: HYDROCORTISONE 2.5% CREAM 30 GM TUBE 1 APPLIC TOPICAL ×2 (07:43→22:04)
[2020-05-16] MEDS: DOCUSATE SODIUM 100 MG CAPSULE PO ×2 (07:44→17:10)
[2020-05-16 08:00] VITALS: PULSE 84; RESP 18; O2SAT 98
--- NOTE | 2020-05-16 10:55 | P.PNNERE_ITS ---
Subjective Date/time seen: 60 years old with bipolar hemiarthroplasty along with right forearm contusion did complain of itching with possible use of tramadol at present is stable with no further [id number]/24/20 10:55 Review of Systems Review of Systems: All systems reviewed & are unremarkable except as noted in HPI and below Functional Status Ambulation Ability Ability to Ambulate 10 Feet: Contact Guard Ability to Ambulate 50 Feet With 2 Turns: Contact Guard Ambulation Assistive Devices: Walker, Wheeled Transfers Ability Ability to Transfer In/Out of Chair: Minimum Assistance X 1 Exam Narrative: Exam Narrative: examination reveals awake alert cooperative no obvious distress ear nose throat examination normal eyes normal had normal neck supple with no JVD lungs clear with no auscultated crepitations his speech nor dysphasic no dysarthric shows generalized weakness 4 to 5/5 but no focal motor deficit extremities normal Objective Data Vital Signs Vital Signs: Vital Signs - 24 hr 05/15/20 14:00 05/15/20 20:53 05/16/20 05:22 Temperature 36.6 C 36.6 C 36.9 C Pulse Rate 80 92 85 Respiratory Rate 19 18 18 Blood Pressure 101/51 L 109/50 L 116/42 L Pulse Oximetry 98 99 98 Intake/Output Intake/Output: Intake & Output 05/13/20 05/14/20 05/15/20 05/16/20 23:59 23:59 23:59 23:59 Intake Total 720 840 960 480 Balance 720 840 960 480 Meds/Results Medications: Active Medications Generic Name Dose Route Start Last Admin Trade Name Freq PRN Reason Stop Dose Admin Acetaminophen 650 mg 05/12/20 18:00 05/16/20 06:05 Tylenol Tablet PO 05/17/20 12:01 650 mg Q6HR RHIANNON Administration Acetaminophen 650 mg 05/17/20 18:00 Tylenol Tablet PO Q6H PRN Mild Pain (1-3) Hydrocodone Bitart/Acetaminophen 1 - 2 tab 05/15/20 17:32 05/16/20 07:43 [place] 5-325 Mg PO 1 tab Q4H PRN Administration Pain Al Hydrox/Mg Hydrox/Simethicone 30 ml 05/12/20 16:24 Mylanta PO Q6H PRN Indigestion Aspirin 325 mg 05/23/20 08:00 Aspirin Ec PO 06/20/20 08:01 DAILY@0800 RHIANNON Bisacodyl 5 mg 05/13/20 15:11 05/13/20 16:03 Dulcolax Tab PO 5 mg QAM PRN Administration Constipation Diphenhydramine HCl 25 mg 05/15/20 17:32 Benadryl Cap PO Q6H PRN Itching Docusate Sodium 100 mg 05/12/20 17:00 05/16/20 07:44 Colace Capsule PO 100 mg BID RHIANNON Administration Hydrocortisone 1 applic 05/15/20 09:00 05/16/20 07:43 Hydrocortisone 2.5% Cream TOPICAL 1 applic Q12HR RHIANNON Administration Polyethylene Glycol 17 gm 05/14/20 09:00 05/16/20 07:42 Miralax PO 17 gm QAM RHIANNON Administration Rivaroxaban 10 mg 05/13/20 09:00 05/16/20 07:42 Xarelto PO 05/22/20 23:59 10 mg DAILY RHIANNON Administration Progress Note: A&P Additional Plan no specific complaints continue the treatment as such
[2020-05-16 14:00] VITALS: BP 103/48; PULSE 85; RESP 19; TEMP 36.6; O2SAT 100
[2020-05-16 21:01] VITALS: BP 117/51; PULSE 90; RESP 20; TEMP 36.7; O2SAT 99
[2020-05-17] MEDS: ACETAMINOPHEN 325 MG TABLET 650 MG PO ×3 (00:07→13:14)
[2020-05-17 04:45] VITALS: BP 129/55; PULSE 85; RESP 18; TEMP 36.8; O2SAT 99
[2020-05-17 08:30] VITALS: PULSE 85; RESP 18; O2SAT 99
[2020-05-17] MEDS: polyethylene glycoL 3350 17 GM POWD.PACK PO (08:45)
[2020-05-17] MEDS: HYDROCORTISONE 2.5% CREAM 30 GM TUBE 1 APPLIC TOPICAL ×2 (08:45→20:39)
[2020-05-17] MEDS: RIVAROXABAN 10 MG TABLET PO (08:45)
[2020-05-17] MEDS: DOCUSATE SODIUM 100 MG CAPSULE PO ×2 (08:45→17:32)
--- NOTE | 2020-05-17 09:41 | PCPTNOTE ---
Maryana Chambers Brandonaníbal was evaluated for a wheeled walker on 05/17/2020 by this physical therapist housekeeper and laundry assistant. The wheeled walker will resolve patient's mobility limitations and will be used for ADL's within the home. The patient can safely use the wheeled walker. ?The wheeled walker will resolve the patient?s mobility deficits, including decreased strength, pain, WBAT precautions on R LE, and endurance. Annetta Ji, NETWORK OPERATIONS ANALYST
[2020-05-17] MEDS: methylPREDNISolone (MEDROL) DOSEPACK 4 MG TABLETS PO ×4 (11:56→20:38)
--- NOTE | 2020-05-17 12:46 | WPDNEURORHBP ---
Subjective Date/time seen: 05/17/20 12:46 Interval history: this 60-year-old woman is here after having had surgery for the right hip fracture for past couple of days she had developed a rash in her buttock and the upper thigh which has not responded to Benadryl and is itching badly to me seems like could be a drug rash her something on that line and an allergic reaction to clothing or unknown etiology 1 hand the patient is not miserable but is complaining of itching and I looked at it carefully it is not getting any better however is not getting worse either the patient remains afebrile no sign of infection she also complaining of the swelling of the right lower extremity however without any calf tenderness and without any Darnell signs She denies any headache nausea vomiting chest pain shortness of breath fever chills sore throat Review of Systems Review of Systems: All systems reviewed & are unremarkable except as noted in HPI and below Functional Status Ambulation Ability Ability to Ambulate 10 Feet: Standby Assistance Ability to Ambulate 50 Feet With 2 Turns: Standby Assistance Ability to Ambulate 150 Feet: Standby Assistance Ambulation Assistive Devices: Walker, Wheeled Transfers Ability Ability to Transfer In/Out of Chair: Minimum Assistance X 1 Exam Const: General: comfortable and no acute distress HENMT: General nose exam: Normal nares present Mouth: Yes moist mucous membranes Eyes: General: appearance normal, both eyes and all related structures Neck: Neck: supple and no JVD Resp: Effort & Inspection: normal respiratory effort Auscultation: clear to auscultation bilaterally Cardio: Rate: regular rate Rhythm: regular rhythm GI: GI Palp: Yes Soft to palpation Auscultation: normal bowel sounds Back/Spine/Pelvis: Other: lower part of her buttock around the sacral area bilaterally and also upper thigh is showing macular rash slightly raised no sign of infection but clearly itching seems like an allergic reaction of some sort Skin: Other: please see above Neuro: Other: she is neurologically will intact and any weakness she has is related to the surgery she has had Extrem: General: normal to inspection Psych: Mental Status: mental status grossly normal Objective Data Vital Signs Vital Signs: Vital Signs - 24 hr 05/16/20 14:00 05/16/20 21:01 05/17/20 04:45 Temperature 36.6 C 36.7 C 36.8 C Pulse Rate 85 90 85 Respiratory Rate 19 20 18 Blood Pressure 103/48 L 117/51 L 129/55 L Pulse Oximetry 100 99 99 Intake/Output Intake/Output: Intake & Output 05/14/20 05/15/20 05/16/20 05/17/20 23:59 23:59 23:59 23:59 Intake Total 840 960 960 480 Balance 840 960 960 480 Meds/Results Medications: Active Medications Generic Name Dose Route Start Last Admin Trade Name Freq PRN Reason Stop Dose Admin Acetaminophen 650 mg 05/17/20 18:00 Tylenol Tablet PO Q6H PRN Mild Pain (1-3) Hydrocodone Bitart/Acetaminophen 1 - 2 tab 05/15/20 17:32 05/17/20 08:44 [place] 5-325 Mg PO 2 tab Q4H PRN Administration Pain Al Hydrox/Mg Hydrox/Simethicone 30 ml 05/12/20 16:24 Mylanta PO Q6H PRN Indigestion Aspirin 325 mg 05/23/20 08:00 Aspirin Ec PO 06/20/20 08:01 DAILY@0800 RHIANNON Bisacodyl 5 mg 05/13/20 15:11 05/13/20 16:03 Dulcolax Tab PO 5 mg QAM PRN Administration Constipation Diphenhydramine HCl 25 mg 05/15/20 17:32 Benadryl Cap PO Q6H PRN Itching Docusate Sodium 100 mg 05/12/20 17:00 05/17/20 08:45 Colace Capsule PO 100 mg BID RHIANNON Administration Hydrocortisone 1 applic 05/15/20 09:00 05/17/20 08:45 Hydrocortisone 2.5% Cream TOPICAL 1 applic Q12HR RHIANNON Administration Methylprednisolone 4 mg 05/17/20 06:30 05/17/20 11:56 Medrol Dosepak PO 05/22/20 07:29 8 mg 1200,1700 RHIANNON Administration Taper Polyethylene Glycol 17 gm 05/14/20 09:00 05/17/20 08:45 Miralax PO 17 gm QAM RHIANNON A
--- NOTE | 2020-05-17 13:15 | PCNFU ---
Nutrition Follow-Up Complete: No nutrition diagnosis at this time. Goal: Patient to consume 75% of meals or greater. Patient is meeting goal with an average of 86% or more meal consumption. Pt current nutrition is Regular. Nutrition recommendation: Agree with current recommendations Last recorded weight is 74.5 kg. Bowel Motility: last bowel movement reported on 05/16/20 Labs Reviewed: no updated labs. Recommend obtaining updated labs. Meds Noted: Colace, Roxicodone, Xarelto, [place], Dulcolax, Miralax Additional Notes: Patient reports increased appetite since Saturday. States she is feeling better and like an actual person again. Offered dietary supplements, patient did not feel a need for them. Right hip incision is well approximated according to report. Follow up in 7 days.
--- NOTE | 2020-05-17 13:34 | PCNSR ---
On 05/17/20, the student, Uriel Robbins, provided care and completed [facility] documentation on this patient. I have reviewed the student's documentation and agree with the findings.
[2020-05-17 14:00] VITALS: BP 103/44; PULSE 86; RESP 20; TEMP 36.2; O2SAT 100
[2020-05-17 21:43] VITALS: BP 130/63; PULSE 102; RESP 18; TEMP 35.5; O2SAT 100
[2020-05-18 05:48] VITALS: BP 127/59; PULSE 80; RESP 18; TEMP 35.2; O2SAT 96
[2020-05-18] MEDS: methylPREDNISolone (MEDROL) DOSEPACK 4 MG TABLETS PO ×4 (06:07→20:31)
[2020-05-18] MEDS: polyethylene glycoL 3350 17 GM POWD.PACK PO (08:26)
[2020-05-18] MEDS: HYDROCORTISONE 2.5% CREAM 30 GM TUBE 1 APPLIC TOPICAL ×2 (08:27→20:30)
[2020-05-18] MEDS: DOCUSATE SODIUM 100 MG CAPSULE PO ×2 (08:28→17:54)
[2020-05-18] MEDS: RIVAROXABAN 10 MG TABLET PO (08:28)
[2020-05-18] MEDS: ACETAMINOPHEN 325 MG TABLET 650 MG PO (12:44)
[2020-05-18 14:00] VITALS: BP 109/55; PULSE 80; RESP 18; TEMP 36.5; O2SAT 100
--- NOTE | 2020-05-18 14:47 | WPDNEURORHBP ---
Subjective Date/time seen: 05/18/20 14:47 Interval history: this 60-year-old woman is here after having had surgery for the hip fracture she is relatively reluctant to the pain medication I have counseled her about it that she should take it before therapy so that she can engage in the therapy better she was receptive to eat her rash is improving itching is less and the is seems like that the prednisone is working for her rash She denies any headache nausea vomiting chest pain shortness of breath fever chills sore throat Review of Systems Review of Systems: All systems reviewed & are unremarkable except as noted in HPI and below Functional Status Ambulation Ability Ability to Ambulate 10 Feet: Independent Ability to Ambulate 50 Feet With 2 Turns: Independent Ability to Ambulate 150 Feet: Independent Ambulation Assistive Devices: Walker, Wheeled Transfers Ability Ability to Transfer In/Out of Chair: Standby Assistance Exam Const: General: comfortable and no acute distress HENMT: General nose exam: Normal nares present Mouth: Yes moist mucous membranes Eyes: General: appearance normal, both eyes and all related structures Neck: Neck: supple and no JVD Resp: Effort & Inspection: normal respiratory effort Auscultation: clear to auscultation bilaterally Cardio: Rate: regular rate Rhythm: regular rhythm GI: GI Palp: Yes Soft to palpation Auscultation: normal bowel sounds Skin: General skin exam: normal color Other: patient's macular rash in her buttock and the lower thigh rather upper thigh is improving and is not as angry looking at it was in the previous couple of days Neuro: Other: patient is awake alert well oriented and making progress in the rehab Extrem: General: normal to inspection Psych: Mental Status: mental status grossly normal Objective Data Vital Signs Vital Signs: Vital Signs - 24 hr 05/17/20 21:43 05/18/20 05:48 Temperature 35.5 C L 35.2 C L Pulse Rate 102 H 80 Respiratory Rate 18 18 Blood Pressure 130/63 127/59 L Pulse Oximetry 100 96 Intake/Output Intake/Output: Intake & Output 05/15/20 05/16/20 05/17/20 05/18/20 23:59 23:59 23:59 23:59 Intake Total 960 960 960 720 Balance 960 960 960 720 Meds/Results Medications: Active Medications Generic Name Dose Route Start Last Admin Trade Name Freq PRN Reason Stop Dose Admin Acetaminophen 650 mg 05/17/20 18:00 05/18/20 12:44 Tylenol Tablet PO 650 mg Q6H PRN Administration Mild Pain (1-3) Hydrocodone Bitart/Acetaminophen 1 - 2 tab 05/15/20 17:32 05/18/20 14:28 [place] 5-325 Mg PO 2 tab Q4H PRN Administration Pain Al Hydrox/Mg Hydrox/Simethicone 30 ml 05/12/20 16:24 Mylanta PO Q6H PRN Indigestion Aspirin 325 mg 05/23/20 08:00 Aspirin Ec PO 06/20/20 08:01 DAILY@0800 RHIANNON Bisacodyl 5 mg 05/13/20 15:11 05/13/20 16:03 Dulcolax Tab PO 5 mg QAM PRN Administration Constipation Diphenhydramine HCl 25 mg 05/15/20 17:32 Benadryl Cap PO Q6H PRN Itching Docusate Sodium 100 mg 05/12/20 17:00 05/18/20 08:28 Colace Capsule PO 100 mg BID RHIANNON Administration Hydrocortisone 1 applic 05/15/20 09:00 05/18/20 08:27 Hydrocortisone 2.5% Cream TOPICAL 1 applic Q12HR RHIANNON Administration Methylprednisolone 4 mg 05/17/20 06:30 05/18/20 12:46 Medrol Dosepak PO 05/22/20 07:29 4 mg 0630,1200,1700 RHIANNON Administration Taper Polyethylene Glycol 17 gm 05/18/20 15:00 05/18/20 14:30 Miralax PO Not Given DAILY@1500 RHIANNON Rivaroxaban 10 mg 05/13/20 09:00 05/18/20 08:28 Xarelto PO 05/22/20 23:59 10 mg DAILY RHIANNON Administration Radiology Results: ITS Impressions Venous Doppler Study 05/17/20 12:30 IMPRESSION: 1. No right lower extremity deep venous thrombosis. Progress Note: A&P Assessment and Plan (1) Rash: Code(s): R21 - Rash and other nonspecific skin eruption Status: Acu
[2020-05-18 22:00] VITALS: BP 119/47; PULSE 85; RESP 18; TEMP 36.8; O2SAT 100
[2020-05-19] MEDS: methylPREDNISolone (MEDROL) DOSEPACK 4 MG TABLETS PO ×4 (05:18→20:20)
[2020-05-19 06:00] VITALS: BP 127/64; PULSE 74; RESP 16; TEMP 36.8; O2SAT 100
[2020-05-19 08:00] VITALS: PULSE 74; RESP 16; O2SAT 100
[2020-05-19] MEDS: DOCUSATE SODIUM 100 MG CAPSULE PO ×2 (08:32→17:06)
[2020-05-19] MEDS: RIVAROXABAN 10 MG TABLET PO (08:32)
[2020-05-19] MEDS: HYDROCORTISONE 2.5% CREAM 30 GM TUBE 1 APPLIC TOPICAL ×2 (12:02→20:22)
[2020-05-19 14:00] VITALS: BP 132/64; PULSE 64; RESP 18; TEMP 36.6; O2SAT 100
[2020-05-19] MEDS: polyethylene glycoL 3350 17 GM POWD.PACK PO (15:55)
[2020-05-19 22:00] VITALS: BP 122/52; PULSE 83; RESP 16; TEMP 36.9; O2SAT 100
[2020-05-20 05:12] LABS: Basophils Percent Auto 0.5 % (0.2-1.2); Eosinophils Absolute Auto 0.3 K/mm3 (0-0.3); Eosinophils Percent Auto 3.1 % (0-4.4); Hematocrit 34.3 % (37.0-47.0); Hemoglobin 11.4 g/dL (12.0-15.0); Immature Granulocyte Absolute 0.04 K/mm3 (0.00-0.031); Immature Granulocyte Percent A 0.5 % (0-0.5); Lymphocytes Absolute Auto 2.08 K/mm3 (0.9-3.2); Lymphocytes Percent Auto 25.5 % (18.3-44.2); Mean Corpuscular HGB Conc 33.2 g/dl (32-36); Mean Corpuscular Hemoglobin 31.7 pg (26-34); Mean Corpuscular Volume 95.3 fl (80-100); Mean Platelet Volume 9.2 fl (7.4-10.4); Monocytes Absolute Auto 0.9 K/mm3 (0.1-0.6); Monocytes Percent Auto 11.1 % (2.6-8.5); Neutrophils Absolute Auto 4.9 K/mm3 (1.3-6.7); Neutrophils Percent Auto 59.3 % (45.5-73.1); Platelet Count Result 415 k/mm3 (150-375); Red Cell Distribution Width 12.2 % (11.5-14.5); White Blood Count 8.2 K/mm3 (4.5-10.0)
[2020-05-20 05:29] LABS: Anion Gap 8 mmol/L (8-16); Blood Urea Nitrogen 12 mg/dL (7-17); Calcium 9.2 mg/dL (8.4-10.2); Carbon Dioxide 29 mmol/L (22-30); Chloride 99 mmol/L (98-107); Estimated CRCL calculation 101 ml/min; Estimated Glomerular Filt Rate > 60; Glucose 92 mg/dL (65-105); Sodium 136 mmol/L (137-145)
[2020-05-20] MEDS: diphenhydrAMINE HCl CAP 25 MG CAPSULE PO (05:38)
[2020-05-20] MEDS: methylPREDNISolone (MEDROL) DOSEPACK 4 MG TABLETS PO ×3 (05:39→20:48)
[2020-05-20 05:54] VITALS: BP 127/58; PULSE 87; RESP 20; TEMP 36.6; O2SAT 100
[2020-05-20] MEDS: RIVAROXABAN 10 MG TABLET PO (09:07)
[2020-05-20] MEDS: DOCUSATE SODIUM 100 MG CAPSULE PO ×2 (09:07→18:05)
[2020-05-20] MEDS: HYDROCORTISONE 2.5% CREAM 30 GM TUBE 1 APPLIC TOPICAL ×2 (10:50→20:48)
--- NOTE | 2020-05-20 13:39 | WPDNEURORHBP ---
Subjective Date/time seen: 05/20/20 13:39 Interval history: this 60-year-old woman is here after having had surgery for the hip fracture she is doing fairly well her rash in the lumbosacral area and the buttocks is improved but little higher she shows as if some kind of reddish rash similar to what is in process of healing is showing up and for which she will need a follow-up with the primary care physician and I encouraged her to call 1 and to be seen soon to look into the etiology of her rash on the back otherwise she denies any headache nausea vomiting chest pain shortness of breath fever chills sore throat and has done remarkably well in the therapy Review of Systems Review of Systems: All systems reviewed & are unremarkable except as noted in HPI and below Functional Status Ambulation Ability Ability to Ambulate 10 Feet: Independent Ability to Ambulate 50 Feet With 2 Turns: Independent Ability to Ambulate 150 Feet: Independent Ambulation Assistive Devices: Walker, Wheeled Transfers Ability Ability to Transfer In/Out of Chair: Independent Exam Const: General: comfortable and no acute distress HENMT: General nose exam: Normal nares present Mouth: Yes moist mucous membranes Eyes: General: appearance normal, both eyes and all related structures Neck: Neck: supple and no JVD Resp: Effort & Inspection: normal respiratory effort Auscultation: clear to auscultation bilaterally Cardio: Rate: regular rate Rhythm: regular rhythm GI: GI Palp: Yes Soft to palpation Auscultation: normal bowel sounds Skin: General skin exam: normal color and no rashes or lesions noted Other: the rash in the lower back is significantly improved and is in healing process with is an area little above that around the bed line which looks reddish however nausea as intense as the previous rash was Neuro: Other: patient is awake and alert well oriented in time place and person has normal speech and language function normal cranial examination and significantly improved strength in her lower extremities Extrem: General: normal to inspection Other: the incision is clean and healthy Psych: Mental Status: mental status grossly normal Objective Data Vital Signs Vital Signs: Vital Signs - 24 hr 05/19/20 14:00 05/19/20 22:00 05/20/20 05:54 Temperature 36.6 C 36.9 C 36.6 C Pulse Rate 64 83 87 Respiratory Rate 18 16 20 Blood Pressure 132/64 122/52 L 127/58 L Pulse Oximetry 100 100 100 Intake/Output Intake/Output: Intake & Output 05/17/20 05/18/20 05/19/20 05/20/20 23:59 23:59 23:59 23:59 Intake Total 960 960 480 240 Balance 960 960 480 240 Meds/Results Medications: Active Medications Generic Name Dose Route Start Last Admin Trade Name Freq PRN Reason Stop Dose Admin Acetaminophen 650 mg 05/17/20 18:00 05/18/20 12:44 Tylenol Tablet PO 650 mg Q6H PRN Administration Mild Pain (1-3) Hydrocodone Bitart/Acetaminophen 1 - 2 tab 05/15/20 17:32 05/20/20 09:08 [place] 5-325 Mg PO 2 tab Q4H PRN Administration Pain Al Hydrox/Mg Hydrox/Simethicone 30 ml 05/12/20 16:24 Mylanta PO Q6H PRN Indigestion Aspirin 325 mg 05/23/20 08:00 Aspirin Ec PO 06/20/20 08:01 DAILY@0800 RHIANNON Bisacodyl 5 mg 05/13/20 15:11 05/13/20 16:03 Dulcolax Tab PO 5 mg QAM PRN Administration Constipation Diphenhydramine HCl 25 mg 05/15/20 17:32 05/20/20 05:38 Benadryl Cap PO 25 mg Q6H PRN Administration Itching Docusate Sodium 100 mg 05/12/20 17:00 05/20/20 09:07 Colace Capsule PO 100 mg BID RHIANNON Administration Hydrocortisone 1 applic 05/15/20 09:00 05/20/20 10:50 Hydrocortisone 2.5% Cream TOPICAL 1 applic Q12HR RHIANNON Administration Methylprednisolone 4 mg 05/17/20 06:30 05/20/20 12:52 Medrol Dosepak PO 05/22/20 07:29 4 mg 0630,1200,2100 RHIANNON Administration Taper Polyethylene Glycol 17 gm 05/18/20 15:00 05/19/20 15:55 Miralax PO 1
[2020-05-20 14:00] VITALS: BP 128/62; PULSE 86; RESP 20; TEMP 36.6; O2SAT 100
[2020-05-20 20:16] VITALS: BP 114/44; PULSE 91; RESP 18; TEMP 37.2; O2SAT 98
[2020-05-21] MEDS: methylPREDNISolone (MEDROL) DOSEPACK 4 MG TABLETS PO (05:13)
[2020-05-21 05:27] VITALS: BP 121/54; PULSE 79; RESP 18; TEMP 36.8; O2SAT 100
[2020-05-21] MEDS: DOCUSATE SODIUM 100 MG CAPSULE PO (08:07)
[2020-05-21] MEDS: RIVAROXABAN 10 MG TABLET PO (08:07)
[2020-05-21] MEDS: HYDROCORTISONE 2.5% CREAM 30 GM TUBE 1 APPLIC TOPICAL (08:08)
--- NOTE | 2020-05-25 15:32 | PM.DS ---
DS: Admitting Diagnosis Admitting Diagnosis Admitting Diagnosis: displaced fracture of base of neck of right femur DS: Discharge Diagnosis Discharge Diagnosis (1) Rash: Code(s): R21 - Rash and other nonspecific skin eruption Status: Acute (2) Forearm contusion: Qualifiers: Encounter type: subsequent encounter Laterality: right Qualified Code(s): S50.11XD - Contusion of right forearm, subsequent encounter Code(s): S50.10XA - Contusion of unspecified forearm, initial encounter Status: Acute (3) Hypoxia: Code(s): R09.02 - Hypoxemia Status: Acute (4) DVT prophylaxis: Code(s): Z29.9 - Encounter for prophylactic measures, unspecified Status: Acute (5) Elevated blood pressure reading: Code(s): R03.0 - Elevated blood-pressure reading, without diagnosis of hypertension Status: Acute (6) Closed basicervical fracture of neck of right femur: Qualifiers: Encounter type: initial encounter Fracture alignment: displaced Qualified Code(s): S72.041A - Displaced fracture of base of neck of right femur, initial encounter for closed fracture Code(s): S72.041A - Displaced fracture of base of neck of right femur, initial encounter for closed fracture Status: Acute DS: Summary Hospital Course Reason for hospitalization: this pleasant 60-year-old woman was admitted because of the surgery for her fracture as mentioned above and are medical issues what she developed during the course of hospitalization was a rash which was responding to the tapering dosages of prednisone and she was instructed to follow up with the primary care physician as soon as possible and also the surgeon as recommended she received the PT OT and gait training Hospital Course: during the course of hospitalization the following independent measures were noted. Eating independent, oral hygiene independent, toileting independent, bathing independent, upper body dressing independent, lower body dressing independent, footwear independent, rolling in bed independent, sitting and lying rather sitting to lying independent, lying to sitting independent, sit to stand independent, chair transfers independent, toilet transfers independent, car transfers independent, walking 10 feet independent, walking 50 feet 2 turns independent, walking 50 feet moved turns with 2 turns independent, with 50 feet 2 turns independent walking 150 feet independent walking 10 feet uneven surfaces independent [place] step independent, 4 steps independent, 12 steps independent, picking of object independent walking or other wheelchair independent, wheelchair 150 feet independent, patient was sent home with outpatient therapy and no falls were recorded Time Spent with Patient Time attestation: Total time spent providing and/or coordinating discharge services: Exam Const: General: comfortable and no acute distress HENMT: General nose exam: Normal nares present Mouth: Yes dry mucous membranes Eyes: General: appearance normal, both eyes and all related structures Neck: Neck: supple and no JVD Resp: Effort & Inspection: normal respiratory effort Auscultation: clear to auscultation bilaterally Cardio: Rate: regular rate Rhythm: regular rhythm GI: GI Palp: Yes Soft to palpation Auscultation: normal bowel sounds Skin: General skin exam: normal color and no rashes or lesions noted Neuro: Other: patient remained awake alert without any focal neurological deficit and was able to achieved the goals of over rehab Extrem: General: normal to inspection Psych: Mental Status: mental status grossly normal Discharge Plan Discharge Attending physician on discharge: Silvino Birce Consulting providers: Teo Myrick Discharging Clinician: Silvino Brice Anticipated Discharge Date/Time: 05/21/20 13:45 Patient Disposition: Home, Self-Care Activity: may shower and no driving Diet: as tolerated Wound Care
== END 2020-05-21 11:50 | disposition home or self-care (01) | DRG 561 ==
PROVIDERS: Admitting Provider Psychiatry & Neurology Neurology; Visit Provider Psychiatry & Neurology Neurology
DX: Z47.1 Aftercare following joint replacement surgery (principal); S72.041D Displaced fracture of base of neck of right femur, subsequent encounter for closed fracture with routine healing; Z96.641 Presence of right artificial hip joint; S50.11XD Contusion of right forearm, subsequent encounter; M16.11 Unilateral primary osteoarthritis, right hip; R21 Rash and other nonspecific skin eruption; R09.02 Hypoxemia; R03.0 Elevated blood-pressure reading, without diagnosis of hypertension; Z87.891 Personal history of nicotine dependence; V19.9XXD Pedal cyclist (driver) (passenger) injured in unspecified traffic accident, subsequent encounter
CPT/HCPCS: 36415; 80048; 85025; 93971; 97110; 97116; 97162; 97165; 97530; 97535; A9270

== ENCOUNTER 2022-07-11 10:13 | Outpatient (CLI) | payer BC, SELFPAY ==
[2022-07-11 18:42] LABS: Basophils Percent Auto 0.8 % (0.2-1.2); Eosinophils Absolute Auto 0.3 K/mm3 (0-0.3); Eosinophils Percent Auto 4.9 % (0-4.4); Hematocrit 44.1 % (37.0-47.0); Hemoglobin 14.4 g/dL (12.0-15.0); Immature Granulocyte Absolute 0.01 K/mm3 (0.00-0.031); Immature Granulocyte Percent A 0.2 % (0-0.5); Lymphocytes Absolute Auto 1.65 K/mm3 (0.9-3.2); Lymphocytes Percent Auto 32.4 % (18.3-44.2); Mean Corpuscular HGB Conc 32.7 g/dl (32-36); Mean Corpuscular Hemoglobin 31.5 pg (26-34); Mean Corpuscular Volume 96.5 fl (80-100); Mean Platelet Volume 11.1 fl (7.4-10.4); Monocytes Absolute Auto 0.6 K/mm3 (0.1-0.6); Monocytes Percent Auto 12.4 % (2.6-8.5); Neutrophils Absolute Auto 2.5 K/mm3 (1.3-6.7); Neutrophils Percent Auto 49.3 % (45.5-73.1); Platelet Count Result 234 k/mm3 (150-375); Red Blood Count 4.57 M/mm3 (4.2-5.4); Red Cell Distribution Width 12.2 % (11.5-14.5); White Blood Count 5.1 K/mm3 (4.5-10.0)
[2022-07-11 18:43] LABS: Alanine Aminotransferase 23 U/L (6-35); Alkaline Phosphatase 45 U/L (38-126); Anion Gap 12 mmol/L (8-16); Aspartate Amino Transferase 22 U/L (14-36); Bilirubin,Total 0.8 mg/dL (0.2-1.3); Blood Urea Nitrogen 13 mg/dL (7-17); Carbon Dioxide 28 mmol/L (22-30); Chloride 99 mmol/L (98-107); Cholesterol 250 mg/dL (0-200); Estimated Glomerular Filt Rate > 60; Glucose 101 mg/dL (65-110); HDL Direct 63 mg/dL; Potassium 4.6 mmol/L (3.4-5.0); Sodium 139 mmol/L (137-145); Triglycerides 84 mg/dL (<150)
[2022-07-11 19:01] LABS: Vitamin D 25 Hydroxy 49.9 ng/mL
[2022-07-11 19:10] LABS: LDL Cholesterol Direct 143 mg/dL
== END 2022-07-11 10:14 | disposition home or self-care (01) ==
LOC: ANHGOSHLAB 10:14
PROVIDERS: PCP Internal Medicine; Visit Provider Clinical Nurse Specialist
DX: Z00.00 Encounter for general adult medical examination without abnormal findings (principal); E55.9 Vitamin D deficiency, unspecified; Z13.220 Encounter for screening for lipoid disorders; Z13.29 Encounter for screening for other suspected endocrine disorder
CPT/HCPCS: 36415; 80053; 80061; 82306; 85025

== ENCOUNTER 2023-10-15 08:10 | Outpatient (CLI) | payer BC, SELFPAY ==
[2023-10-15 14:23] LABS: Basophils Percent Auto 0.6 % (0.2-1.2); Eosinophils Absolute Auto 0.3 K/mm3 (0-0.3); Hematocrit 43.5 % (37.0-47.0); Immature Granulocyte Absolute 0.01 K/mm3 (0.00-0.031); Immature Granulocyte Percent A 0.2 % (0-0.5); Lymphocytes Percent Auto 32.3 % (18.3-44.2); Mean Corpuscular HGB Conc 32.2 g/dl (32-36); Mean Corpuscular Hemoglobin 31.7 pg (26-34); Mean Corpuscular Volume 98.4 fl (80-100); Mean Platelet Volume 11.1 fl (7.4-10.4); Monocytes Absolute Auto 0.6 K/mm3 (0.1-0.6); Monocytes Percent Auto 12.9 % (2.6-8.5); Neutrophils Absolute Auto 2.4 K/mm3 (1.3-6.7); Platelet Count Result 223 k/mm3 (150-375); Red Blood Count 4.42 M/mm3 (4.2-5.4)
[2023-10-15 15:00] LABS: Vitamin D 25 Hydroxy 46.8 ng/mL
[2023-10-15 15:02] LABS: Alanine Aminotransferase 17 U/L (6-35); Albumin Level 4.6 g/dL (3.5-5.1); Alkaline Phosphatase 46 U/L (38-126); Anion Gap 7 mmol/L (8-16); Aspartate Amino Transferase 40 U/L (14-36); Blood Urea Nitrogen 16 mg/dL (7-17); Calcium 9.6 mg/dL (8.4-10.2); Carbon Dioxide 30 mmol/L (22-30); Chloride 100 mmol/L (98-107); Cholesterol 229 mg/dL (0-200); Estimated Glomerular Filt Rate > 60; Glucose 80 mg/dL (65-110); HDL Direct 68 mg/dL; Potassium 4.2 mmol/L (3.4-5.0); Sodium 137 mmol/L (137-145); Triglycerides 104 mg/dL (<150)
[2023-10-15 15:16] LABS: LDL Cholesterol Direct 128 mg/dL
== END 2023-10-15 08:11 | disposition home or self-care (01) ==
PROVIDERS: PCP Internal Medicine; Visit Provider Clinical Nurse Specialist
DX: Z00.00 Encounter for general adult medical examination without abnormal findings (principal); E55.9 Vitamin D deficiency, unspecified; Z13.220 Encounter for screening for lipoid disorders; Z13.29 Encounter for screening for other suspected endocrine disorder
CPT/HCPCS: 36415; 80053; 80061; 82306; 85025

== ENCOUNTER 2023-10-22 08:09 | Outpatient (CLI) | payer BC, SELFPAY ==
[2023-10-22 15:57] LABS: Thyroid Stimulating Hormone Reflex 0.827 uIU/mL (0.465-4.68)
== END 2023-10-22 08:10 | disposition home or self-care (01) ==
LOC: ANHGOSHLAB 08:11
PROVIDERS: PCP Internal Medicine; Visit Provider Clinical Nurse Specialist
DX: R63.4 Abnormal weight loss (principal)
CPT/HCPCS: 36415; 84443

== ENCOUNTER 2023-12-24 00:48 | Day surgery (SDC) | payer BC, SELFPAY ==
[2023-12-16 09:07] VITALS: BMI 20.1
--- NOTE | 2023-12-20 10:32 | SUR.PREOP ---
Patient called regarding upcoming procedure. Reviewed preop instructions, appointment times, and procedure prep.
--- NOTE | 2023-12-23 14:46 | WPDANESEPPF ---
Anes - Initial Pre Proc Eval Procedure: Operation Date: 12/24/23 09:00 Proposed Procedures p Screening Colonoscopy - Jitendra Crain MD Date/Time: 12/23/23 14:46 Surgeon: Jitendra Crain MD Pre Op Diagnosis: Neoplasm screening Patient Data Age: 63 Gender: F Height: 1.73 m Weight: 60 kg Allergies Allergy/AdvReac Type Severity Reaction Status Date / Time No Known Allergies Allergy Verified 12/24/23 07:43 Home Medications Medication Instructions Recorded Confirmed Type No Home Medications 10/17/23 12/16/23 History Patient hx anesthesia problems: none Family hx anesthesia problems: none Results Review: All pre-operative results and documents have been reviewed as part of the pre-operative evaluation. 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 She quit tobacco 30 years ago after smoking up to 1/4 a pack a day for 14 years. She drinks 3-4 alcoholic drinks a week. No drug use. She is full code. She nominates her to be the individual who would make medical decisions for her if she is unable. Years smoked: 10 Smoking status: Former smoker Tobacco type: cigarettes Alcohol intake: current Drinks per week: 3 Alcohol use details: Beer Substance use: never Substance use type: does not use Lack of Transportation: No Lack of Food: Never True Current Housing: I Have Housing Concerned About Future Housing: No Difficulty Paying Gas/Electric Bills: No Difficulty Paying for Meds: No Currently Unemployed: No Education: Bachelor's Degree Difficulty w/ Childcare or Family Care: No Spiritual care concerns: No Anes - Eval Final PreProcedure Day of Procedure 12/23/23 14:46 Patient weight: normal Heart: regular rate and rhythm Lungs: clear to auscultation Airway: Mallampati scale class II Neurological: alert and oriented Last oral intake: >/= 8 hours ASA classification: II Emergent: no Anesthetic plan: proceed Anesthesia type and monitoring: general GIVS and standard monitoring Results Review: All pre-operative results and documents have been reviewed as part of the pre-operative evaluation. Informed Consent: The patient's anesthetic plan and its attendant risks and benefits were discussed with the patient/family/POA. Questions were solicited and answers provided to the satisfaction of the patient/family/POA.
[2023-12-24 07:44] VITALS: BP 119/43; PULSE 85; RESP 18; TEMP 36.2; O2SAT 100
[2023-12-24] MEDS: LACTATED RINGERS 1,000 ML 150 ML IV CONT (07:55)
--- NOTE | 2023-12-24 08:33 | PM.HPGS ---
History of Present Illness History of Present Illness Consent: Risks, benefits, and alternatives have been discussed and questions answered. Patient agrees to proceed with procedure. 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 She quit tobacco 30 years ago after smoking up to 1/4 a pack a day for 14 years. She drinks 3-4 alcoholic drinks a week. No drug use. She is full code. She nominates her to be the individual who would make medical decisions for her if she is unable. Years smoked: 10 Smoking status: Former smoker Tobacco type: cigarettes Alcohol intake: current Drinks per week: 3 Alcohol use details: Beer Substance use: never Substance use type: does not use Lack of Transportation: No Lack of Food: Never True Current Housing: I Have Housing Concerned About Future Housing: No Difficulty Paying Gas/Electric Bills: No Difficulty Paying for Meds: No Currently Unemployed: No Education: Bachelor's Degree Difficulty w/ Childcare or Family Care: No Spiritual care concerns: No Meds Home Medications and Allergies Home Medications Medication Instructions Recorded Confirmed Type No Home Medications 10/17/23 12/16/23 History Allergies Allergy/AdvReac Type Severity Reaction Status Date / Time No Known Allergies Allergy Verified 12/24/23 07:43 Vital Signs Vital Signs - 24 hr 12/24/23 07:44 Temperature 97.2 F L Pulse Rate 85 Respiratory Rate 18 Blood Pressure 119/43 L Pulse Oximetry 100 Oxygen Delivery Room Air Exam Const: General: comfortable and no acute distress HENMT: Face/Nose/Sinus: Normal nares present Eyes: General: appearance normal, both eyes and all related structures Neck: Neck: no JVD Resp: Auscultation: clear to auscultation bilaterally Cardio: Rate: regular rate Rhythm: regular rhythm GI: Inspection: non-distended GI Palp: Yes Soft to palpation Skin: General skin exam: normal color Neuro: General: gait normal Speech: normal speech Extrem: General: normal to inspection Psych: Mental Status: mental status grossly normal Assessment and Plan Assessment and plan (1) Screening for colon cancer: Code(s): Z12.11 - Encounter for screening for malignant neoplasm of colon Status: Acute Assessment and Plan: colonoscopy
[2023-12-24 08:58] VITALS: BP 108/47; PULSE 75; RESP 16; O2SAT 100
[2023-12-24 09:08] VITALS: BP 114/49; PULSE 72; RESP 15; O2SAT 100
[2023-12-24 09:18] VITALS: BP 122/59; PULSE 74; RESP 19; O2SAT 100
== END 2023-12-24 09:25 | disposition home or self-care (01) ==
PROVIDERS: PCP Internal Medicine; Visit Provider Internal Medicine Gastroenterology
PROC: 0DJD8ZZ Inspection of Lower Intestinal Tract, Via Natural or Artificial Opening Endoscopic (ICD-10-PCS; CPT 45378; principal; 2023-12-24 09:00)
DX: Z12.11 Encounter for screening for malignant neoplasm of colon (principal); K64.8 Other hemorrhoids; K57.30 Diverticulosis of large intestine without perforation or abscess without bleeding; Z98.890 Other specified postprocedural states; Z87.891 Personal history of nicotine dependence; Z80.0 Family history of malignant neoplasm of digestive organs; Z80.52 Family history of malignant neoplasm of bladder; Z82.49 Family history of ischemic heart disease and other diseases of the circulatory system
CPT/HCPCS: 45378; J2704; J7120

== ENCOUNTER 2024-09-11 08:02 | Emergency (ER) | payer BC, SELFPAY ==
--- NOTE | ~2024-09-11 | XR_ITS ---
Right Hand Technique: PA, oblique, and lateral views were obtained. Clinical History: Injury, numbness Findings: No acute fracture or dislocation is seen. Osseous alignment is anatomic. Joint spaces are p reserved. Soft tissues are unremarkable. Impression: Unremarkable right hand. Reviewed, dictated and finalized at location . EL FILLER Impression: Unremarkable right hand.
--- NOTE | ~2024-09-11 | XR_ITS ---
Right elbow Technique: AP, oblique, and lateral views were obtained. Clinical History: Pain Findings: Suggestion of small joint effusion, which could indicate radiographically occult fracture. No fracture clearly delineated on these radiographs. Osseous alignment appears anatomic. Joint spaces are intact. Impression: Suspected small joint effusion, which could indicate radiographically occult fracture. Reviewed, dictated and finalized at [facility]. [employer]OR OF INVESTIGATIONS Impression: Suspected small joint effusion, which could indicate radiographically occult fr acture.
[2024-09-11 08:19] VITALS: BP 130/65; PULSE 97; RESP 18; TEMP 36.4; O2SAT 100
--- NOTE | 2024-09-11 08:27 | ED_ITS ---
HPI - Extremity Injury (Upper) General Chief Complaint: Extremity Injury, Upper Stated Complaint: Right Finger Injury, Fall Time Seen by Provider: 09/11/24 08:18 Source: patient and RN notes reviewed Mode of arrival: ambulatory Limitations: no limitations History of Present Illness HPI narrative: Patient presents today complaining of decreased sensation to the right 1st and 2nd fingers since yesterday. Three days ago she fell in her bathroom onto her right elbow causing some discomfort and bruising. States she does not have much pain to this area and has no increased pain with range of motion of the elbow. Yesterday she was carrying some bags in her right hand, swelling to put them in her car, striking her right hand on the car door very hard. This has caused some decreased sensation in her right 1st and 2nd fingers. Denies pain to this area, but she is also having some difficulty moving these fingers. No [id number]-[id number]-ldaamry treatment prior to arrival. Related Data Home Medications ?Medication ?Instructions ?Recorded ?Confirmed ?Last Taken ?Type No Home Medications 10/17/23 09/11/24 Unknown History Allergies Allergy/AdvReac Type Severity Reaction Status Date / Time No Known Allergies Allergy Verified 09/11/24 08:11 Review of Systems Review of Systems: CONSTITUTIONAL: Denies body aches, fever, chills, or sweats. EYES: Denies visual changes, redness, or discharge. ENT: Denies rhinorrhea, congestion, sore throat, or otalgia. CARDIOVASCULAR: Denies chest pain, palpitations, or edema. RESPIRATORY: Denies cough or dyspnea. GASTROINTESTINAL: Denies abdominal pain, nausea, vomiting, or diarrhea. GENITOURINARY: Denies dysuria or hematuria. SKIN: Denies rash, itching, or wounds. MUSCULOSKELETAL:+right elbow brusing NEUROLOGIC: +tingling right 1st and 2nd fingers PSYCH: Denies depression or anxiety. 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 She quit tobacco 30 years ago after smoking up to 1/4 a pack a day for 14 years. She drinks 3-4 alcoholic drinks a week. No drug use. She is full code. She nominates her to be the individual who would make medical decisions for her if she is unable. Years smoked: 10 Smoking status: Former smoker Tobacco type: cigarettes Alcohol intake: current Drinks per week: 3 Alcohol use details: Beer Substance use: never Substance use type: does not use Lack of Transportation: No Lack of Food: Never True Current Housing: I Have Housing Concerned About Future Housing: No Difficulty Paying Gas/Electric Bills: No Difficulty Paying for Meds: No Currently Unemployed: No Education: Bachelor's Degree Difficulty w/ Childcare or Family Care: No Spiritual care concerns: No Comments At time of signature, I have reviewed and agree with nursing past medical, surgical, social and family history unless otherwise noted. Please see nursing chart for further information. There is no relevant family history pertinent to the presenting complaint Exam Narrative: GENERAL: Well-appearing, well-nourished, and in no acute distress. HEAD: Normocephalic, atraumatic. EYES: EOMI. No redness or drainage. Conjunctivae normal. ENT: Mucous membranes pink and moist. NECK: Normal AROM. CHEST: No respiratory distress. EXTREMITIES: Right arm: SKIN: Warm, dry, no rash. Capillary refill normal. Normal skin turgor. NEURO: No focal deficits. Alert and oriented x3. Gait steady. PSYCH: Normal affect. No signs of depression or anxiety. Course Course Level of Care: Express Care Visit Vital Signs Vital signs: Vital Signs Temperature 97.6 F 09/11/24 08:19 Pulse Rate 97 09/11/24 08:19 Respiratory Rate 18 09/11/24 08:19 Blood Pressure 130/65 09/11/24 08:19 Pulse Oximetry 100 09/11/24 08:19 Oxygen Delivery Room Air 09/11/24 08:19 Temperature 97.6 F 09/11/24 08:19 Pulse Rate 97 09/11/24 08:19 Respiratory Rate 18 09/11/24 08:19 Blood Pressure 130/65 09/11/24 08:19 Pulse Oximetry 100 09/11/24 08:19 Oxygen Delivery Room Air 09/11/24 08:19 Reviewed Procedures Orthopedic Splinting/Casting Injury #1: Splinting/Casting Date: 09/11/24 Splinting/Casting Time: 09:41 Side: right OCL: long arm Pre-Procedure Neuro Vascular Exam: normal Post-Procedure Neuro Vascular Exam: normal Other Orthopedic Equipment: other (Sling) Additional Comments: Placed by tech MDM - Extremity Injury (Upper) MDM Narrative Medical decision making narrative: Hand x-rays negative. Elbow x-ray shows small joint effusion, which could mean ankle fracture. Patient will be placed in a long-arm OCL for immobilization with recommendation to follow-up with orthopedics. Patient agrees with plan. Anticipatory guidance given. Differential Diagnosis Differential diagnosis: Likely finger sprain and other (Fracture, contusion) Imaging Data Radiologist's impression: ITS Impressions Elbow X-Ray 09/11/24 08:39 Impression: Suspected small joint effusion, which could indicate radiographically occult fracture. Hand X-Ray 09/11/24 08:39 Impression: Unremarkable right hand. Critical Care Time Critical Care Time Critical Care Time: No Discharge Plan Discharge Clinical Impression: Effusion of right elbow, Decreased sensation, Fall Patient Disposition: Home, Self-Care Condition: Stable Instructions: Arm Fracture in Adults (ED) Additional Instructions: As discussed, your x-ray shows collection of fluid in your elbow joint, which could mean a fracture of your elbow. You have been placed in a splint to keep your elbow immobilized. Please follow-up with orthopedics regarding your elbow as well as the decreased sensation in your fingers. Take Tylenol or ibuprofen for pain if needed. Your blood pressure was elevated above 120/80 today at Urgent Care. This puts you above the threshold for follow up. Please schedule a followup visit with your personal physician as soon as possible, for further evaluation and treatment. Even blood pressure exceeding 120/80 may indicate pre-hypertension. Patient Language: Upper Sorbian Prescriptions: No Action No Home Medications Follow-up/Referrals: Chino Farmer MD [Physician] - Reagan Rogers DO [Primary Care Provider] - Time of Disposition: 09:41
== END 2024-09-11 09:45 | disposition home or self-care (01) ==
PROVIDERS: Emergency Provider Nurse Practitioner; PCP Internal Medicine
DX: M25.421 Effusion, right elbow (principal); R20.9 Unspecified disturbances of skin sensation; W19.XXXA Unspecified fall, initial encounter; Z87.891 Personal history of nicotine dependence
CPT/HCPCS: 29105; 73080; 73130; 99213; A4565; G0463

== ENCOUNTER 2024-10-12 08:49 | Outpatient (CLI) | payer BC, SELFPAY ==
--- NOTE | ~2024-10-12 | XR_ITS ---
Right elbow Technique: AP, oblique, and lateral views were obtained. Clinical History: Median nerve lesion COMPARISON: 09/11/2024 Findings: No acute fracture or dislocation is seen. Osseous alignment is anatomic. Joint spaces are p reserved. There is no displacement of the fat pads, and soft tissues are unremarkable. Impression: Unremarkable radiographs. Reviewed, dictated and finalized at location . CIATE MEDIA PLANNER Impression: Unremarkable radiographs.
== END 2024-10-12 08:50 | disposition home or self-care (01) ==
LOC: GOSHIMG 08:51
PROVIDERS: PCP Orthopaedic Surgery; Visit Provider Orthopaedic Surgery
DX: G56.11 Other lesions of median nerve, right upper limb (principal)
CPT/HCPCS: 73070

== ENCOUNTER 2025-07-06 08:24 | Outpatient (CLI) | payer MEDICARE, SELFPAY ==
[2025-07-06 12:56] LABS: Hematocrit 42.2 % (37.0-47.0); Hemoglobin 13.1 g/dL (12.0-15.0); Immature Granulocyte Percent A 0.3 % (0-0.5); Lymphocytes Absolute Auto 1.23 K/mm3 (0.9-3.2); Mean Corpuscular HGB Conc 31.0 g/dl (32-36); Mean Corpuscular Hemoglobin 31.4 pg (26-34); Mean Corpuscular Volume 101.2 fl (80-100); Nucleated Red Blood Cells Absolute Auto 0.000 K/mm3 (0.0-0.012); Nucleated Red Blood Cells Perc 0.0 % (0.0-0.2); Platelet Count Result 195 k/mm3 (150-375); Red Blood Count 4.17 M/mm3 (4.2-5.4); White Blood Count 3.7 K/mm3 (4.5-10.0)
[2025-07-06 13:06] LABS: Alanine Aminotransferase 21 U/L (6-35); Albumin Level 4.5 g/dL (3.5-5.1); Alkaline Phosphatase 44 U/L (38-126); Anion Gap 8 mmol/L (4-12); Aspartate Amino Transferase 35 U/L (14-36); Bilirubin,Total 0.8 mg/dL (0.2-1.3); Blood Urea Nitrogen 12 mg/dL (7-17); Calcium 9.5 mg/dL (8.4-10.2); Carbon Dioxide 27 mmol/L (22-30); Chloride 104 mmol/L (98-107); Cholesterol 238 mg/dL (0-200); Estimated Glomerular Filt Rate > 60; Glucose 91 mg/dL (65-110); HDL Direct 82 mg/dL; Potassium 4.6 mmol/L (3.4-5.0); Sodium 139 mmol/L (137-145); Total Protein 7.8 g/dL (6.3-8.2); Triglycerides 73 mg/dL (<150)
[2025-07-06 13:41] LABS: Thyroid Stimulating Hormone 1.210 uIU/mL (0.465-4.680)
[2025-07-12 22:07] LABS: 1,25-Dihydroxy, Vitamin D-2 <10 pg/mL (.); 1,25-Dihydroxy, Vitamin D-3 44 pg/mL (.); Total 1,25-Dihydroxy,Vitamin D 44 pg/mL (.)
== END 2025-07-06 08:25 | disposition home or self-care (01) ==
LOC: ANHGOSHLAB 08:25
PROVIDERS: PCP Internal Medicine
DX: E78.5 Hyperlipidemia, unspecified (principal); E55.9 Vitamin D deficiency, unspecified; R63.4 Abnormal weight loss; Z13.29 Encounter for screening for other suspected endocrine disorder; Z13.228 Encounter for screening for other metabolic disorders; Z13.0 Encounter for screening for diseases of the blood and blood-forming organs and certain disorders involving the immune mechanism; Z68.23 Body mass index [BMI] 23.0-23.9, adult
CPT/HCPCS: 36415; 80053; 80061; 82652; 84443; 85025

== ENCOUNTER 2025-07-08 08:09 | Outpatient (CLI) | payer MEDICARE, SELFPAY ==
--- OUTSIDE RECORDS SUMMARY | 2025-07-08 08:12 | XMS_ITS | Clinical Summary ---
Author Organization [facility] Address [address] [place] [address] Care Team Providers Care Child Monitor Name Role Phone Aldo Trinh MD Primary Care Provider [phone] Source Comments [facility],non-owned Affiliates and Associated Physician Practices is amultiple site organization consisting of ambulatory clinics and hospital sitesin [place], [place], [place] and [place]. This disclosure is being madepursuant to the Care Everywhere program and may not contain all information available regarding this patient. Last updated 18.[facility] Allergies No known active allergies Medications * Be aware that medications may not be up to date on this document. Alwaysverify current medications with the patient. benzonatate (TESSALON) 200 MG capsuleIndicati ons:Cough Take 1 capsule by mouth 3 times daily as needed for Cough 30 capsule 9 Active Additional Information Patient not taking.Reported on 10/05/2019 benzonatate (TESSALON) 200 MG capsule Take 1 (one) capsule by mouth 3 times daily as needed for Cough 30 capsule 1 Active Active Problems No known active problems Immunizations Immunization Administration Dates Next Due INFLUENZA VACCINE, QUADR. 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 Gender Identity Not on file Sexual Orientation Not on file Last Filed Vital Signs Vital Sign Reading Time Taken Comments Blood Pressure 118/72 01/20/2021 9:57 AM CDT Pulse 90 01/20/2021 9:57 AM CDT Temperature 36.8 C (98.2 F) 01/20/2021 9:57 AM CDT Respiratory Rate 20 11/14/2020 9:58 AM SEWER Oxygen Saturation 98% 10/05/2019 3:49 PM SEWER Inhaled Oxygen Concentration - - Weight 69.9 kg (154 lb) 01/20/2021 9:57 AM CDT Height 172.7 cm (5' 8) 01/20/2021 9:57 AM CDT Body Mass Index 23.42 01/20/2021 9:57 AM CDT Plan of Treatment Health Maintenance Due Date Last Done Comments BONE DENSITY TESTING 1960 COLOGUARD (AGES 45-75) - COL ON CA SCREENING 1960 COLON MONITORING 1960 COLONOSCOPY - COLON CA SCREENING 1960 CT COLONOGRAPHY - COLON CA SCREENING 1960 Colorectal Cancer Screening 1960 FIT - COLON CA SCREENING 1960 FLEX SIG - COLON CA SCREENING 1960 LIPID TESTING 1960 MAMMOGRAM 1960 HIV SCREENING 1975 HEPATITIS C SCREENING 04/20/1978 DTAP/TDAP/TD VACCINES (1 - Tdap) 1979 PNEUMOCOCCAL VACCINE 50+ (1 of 1 - PCV) 2010 ZOSTER VACCINE (1 of 2) 2010 DEPRESSION SCREENING 09/23/2024 COVID-19 VACCINE (3 - 2024-2 6 season) 2025 12/09/2020, 11/18/2020 INFLUENZA VACCINE (#1) 2025 , 07/09/2019 Respiratory Syncytial Virus (RSV) Vaccine Pt: or over 60 yrs (1 - 1-dose 75+ series) 2035 HEPATITIS B VACCINE Aged Out No longe r eligible based on patient's age to complete this topic HIB VACCINE Aged Out No longer eligi ble based on patient's age to complete this topic HPV VACCINE Aged Out No longer eligi ble based on patient's age to complete this topic MENINGOCOCCAL (Group B) VACCINE SHARED DECISION-MAKING Aged Out No longer eligible based on patient's age to complete this topic MENINGOCOCCAL GROUPS A/C/Y/W VACCINE Aged Out No longer eligible b ased on patient's age to complete this topic Insurance [facility] Care Teams Child Monitor Relationship Specialty Start Date End Date Aldo Trinh MD [address] [place] [address] PCP - General Family Medicine 10/05/17
--- OUTSIDE RECORDS SUMMARY | 2025-07-08 08:12 | XMS_ITS | Clinical Summary ---
Author Organization [facility] Address [address] [place] [address] Care Team Providers Care Compensation Agent Name Role Phone Reagan Rogers DO Primary Care Provider Allergies No known active allergies Medications hydrocortisone (ANUSOL-HC) 2.5 % rectal cream 2 Active ofloxacin (FLOXIN) 0.3 % otic solution Administer 5 drops into the right ear daily 5 mL 5 Active Active Problems Problem Noted Date Diagnosed Date Other lesions of median nerve, right upper limb 11/06/2024 Dense breasts 08/30/2022 Fibrocystic breast changes 10/27/2014 Encounters Date Type Department Care Team Description 04/15/2025 8:30 AM CDT Office Visit [facility] at [address] [address] Mayra Ghotra PA Bilateral impacted cerumen (Primary Dx) from Last 3 Months Family History Medical History Relation Name Comments Colon cancer Brother Throat cancer Father Throat cancer - (Added by TW Conv) throat cancer Father Relation Name Status Comments Brother Father Social History Tobacco Use Types Packs/Day Years Used Date Smoking Tobacco: Never Tobacco Cessation:Counseling Given: Not Answered Comments Unknown Sex and Gender Information Value Date Recorded Sex Assigned at Not on file 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 Gender Identity Not on file Sexual Orientation Not on file Obstetrics History Last Filed Vital Signs Vital Sign Reading Time Taken Comments Blood Pressure 108/68 04/15/2025 8:23 AM CDT Pulse 69 04/15/2025 8:23 AM CDT Temperature 36.8 C (98.2 F) 04/15/2025 8:23 AM CDT Respiratory Rate 18 04/15/2025 8:23 AM CDT Oxygen Saturation 98% 04/15/2025 8:23 AM CDT Inhaled Oxygen Concentration - - Weight 62.3 kg (137 lb 4.8 oz) 04/15/2025 8:23 A M CDT Height 172.7 cm (5' 7.99) 04/15/2025 8:23 AM CD T Body Mass Index 20.88 04/15/2025 8:23 AM CDT Plan of Treatment Health Maintenance Due Date Last Done Comments Cervical Cancer Screening 1960 Colon Cancer Screening-Colonoscopy 1960 Depression Screening 1960 Fall Risk Assessment 1960 Hepatitis C Screening 1960 Osteoporosis Screening-Bone Density Scan 1960 DTaP/Tdap/Td Vaccine (1 - Tdap) 1971 Hepatitis B Screening 1978 Pneumococcal vaccine 65+ (1 of 1 - PCV) 2010 Zoster Vaccine (1 of 2) 2010 Well Visit 65+ 2025 Covid-19 Vaccine (5 - 2024-2 6 season) 2025 07/22/2022, 08/21/2021, 12/09/2020, Additional history exists Influenza Vaccine (#1) 2025 , 07/07/2021, 06/25/2020, Additional history exists Breast Cancer Screening-Mammogram 02/19/2026 02/19/2025, 12/10/2023, 08/30/2022, Additional history exists Procedures Procedure Name Priority Date/Time Associated Diagnosis Comments [place] REMOVAL IMPACTED CERUMEN INSTRUMENTATION UNILAT Routine 04/15/2025 8:30 AM CDT Bilateral impacted cerumen SCREENING MAMMOGRAM BILATERAL W CURTIS Schedule Routine, Read Routine (OP Routine) 02/19/2025 9:22 AM CDT Screening mammogram, encounter for from Last 3 Months or Most Recently Relevant to Health Maintenance Results * [place] REMOVAL IMPACTED CERUMEN INSTRUMENTATION UNILAT (04/15/2025 8:30 AM CDT) Narrative Mayra Ghotra PA - 04/15/2025 8:30 AM CDT Mayra Ghotra PA 04/15/2025 9:00 AM Ear Cerumen Removal Performed by: Mayra Ghotra PA Authorized by: Mayra Ghotra PA Consent Given by: Patient Verbal consent obtained: Yes Location: Bilateral L ear cerumen impacted?: Yes L ear method of removal: Instrumentation, magnification and irrigation L ear instrumentation: Curette L ear magnification: Otoscope R ear cerumen impacted?: Yes R ear method of removal: Instrumentation, magnification and irrigation R ear instrumentation: Curette R ear magnification: Otoscope Inspection: TM intact Hearing quality: Improved Patient tolerance: Patient tolerated the procedure with difficulty us Mayra JAVIER IN CLINIC/BEDSIDE ORDERA BLES Final Result * Screening Mammogram Bilateral W Curtis (02/19/2025 9:22 AM CDT) Anatomical Region Laterality Modality Breast Bilateral Mammography Narrative 02/19/2025 12:49 PM CDT Mammogram Technique: Bilateral Digital Breast Tomosynthesis, Bilateral C-view 2D Screening mammogram. Views obtained: bilateral craniocaudal and bilateral mediolateral oblique. Computer Aided Detection was performed. Mammogram Findings: The present examination has been compared to prior imaging studies performed at [facility] on 11/25/2017, 08/30/2022 and 12/10/2023. There are scattered areas of fibroglandular density. There is no suspicious abnormality in either breast. Impression: There is no mammographic evidence of malignancy. Annual screening mammography is recommended. OVERALL FINAL ASSESSMENT: BI-RADS CATEGORY 1: Negative. Procedure Note Prudence Haney MD - 02/19/2025 Mammogram Technique: Bilateral Digital Breast Tomosynthesis, Bilateral C-view 2D Screening mammogram. Views obtained: bilateral craniocaudal and bilateral mediolateral oblique. Computer Aided Detection was performed. Mammogram Findings: The present examination has been compared to prior imaging studies performed at [facility] on 11/25/2017, 08/30/2022 and 12/10/2023. There are scattered areas of fibroglandular density. There is no suspicious abnormality in either breast. Impression: There is no mammographic evidence of malignancy. Annual screening mammography is recommended. OVERALL FINAL ASSESSMENT: BI-RADS CATEGORY 1: Negative. us Self Screening Mammogram IMG MAMMO PROCEDURES Fi nal Result from Last 3 Months or Most Recently Relevant to Health Maintenance [facility] Care Teams Compensation Agent Relationship Specialty Start Date End Date Reagan Rogers DO PCP - General Internal Medicine 07/11/22
--- OUTSIDE RECORDS SUMMARY | 2025-07-08 08:12 | XMS_ITS | Clinical Summary ---
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 Gender Identity Not on file Sexual Orientation Not on file Plan of Treatment Health Maintenance Due Date Last Done Comments Hepatitis C Virus (HCV) Screening 1960 TdaP Immunization 1960 Pap Smear 1981 Cervical Cancer Screening (CCS) 1990 HPV/Cotest 1990 Cologuard 2005 Colonoscopy 2005 Colorectal Cancer Screening 2005 Immunochemical Fecal Occult Blood 2005 Pneumococcal Immunization (5 0+ years) (1 of 1 - PCV) 2010 Zoster Immunization (1 of 2) 2010 Influenza Immunization (#1) 05/24/202511/2019, 07/09/2019 SARS-COV-2 Immunization ( - season) 2025 Respiratory Syncytial Virus (RSV) Immunization (Adult) (1 - 1-dose 75+ series) 2035 Hepatitis B Immunization Aged Out No longer eligible based on patient's age to complete this topic Human Papillomavirus (HPV) Immunization Aged Out No longer eligible b ased on patient's age to complete this topic Meningococcal Immunization (ACWY) Aged Out No longer eligible b ased on patient's age to complete this topic Rotavirus Immunization Aged Out No lo nger eligible based on patient's age to complete this topic
[2025-07-08 19:43] LABS: Hematocrit 41.0 % (37.0-47.0); Hemoglobin 13.3 g/dL (12.0-15.0); Immature Granulocyte Percent A 0.3 % (0-0.5); Lymphocytes Absolute Auto 1.40 K/mm3 (0.9-3.2); Mean Corpuscular HGB Conc 32.4 g/dl (32-36); Mean Corpuscular Hemoglobin 32.6 pg (26-34); Mean Corpuscular Volume 100.5 fl (80-100); Nucleated Red Blood Cells Absolute Auto 0.000 K/mm3 (0.0-0.012); Nucleated Red Blood Cells Perc 0.0 % (0.0-0.2); Platelet Count Result 189 k/mm3 (150-375); Red Blood Count 4.08 M/mm3 (4.2-5.4); White Blood Count 4.0 K/mm3 (4.5-10.0)
[2025-07-08 21:31] LABS: Vitamin B12 241.0 pg/mL (239-931)
== END 2025-07-08 08:10 | disposition home or self-care (01) ==
LOC: ANHGOSHLAB 08:10
PROVIDERS: PCP Internal Medicine
DX: E55.9 Vitamin D deficiency, unspecified (principal); Z68.23 Body mass index [BMI] 23.0-23.9, adult; Z13.29 Encounter for screening for other suspected endocrine disorder; Z13.0 Encounter for screening for diseases of the blood and blood-forming organs and certain disorders involving the immune mechanism; Z13.228 Encounter for screening for other metabolic disorders; R79.89 Other specified abnormal findings of blood chemistry
CPT/HCPCS: 36415; 82306; 82607; 82746; 85025

== ENCOUNTER 2025-07-23 12:40 | Outpatient (CLI) | payer MEDICARE, SELFPAY ==
--- NOTE | 2025-07-23 12:50 | CONSULT_PTH ---
PATIENT: Maryana Maria LOC: ANHGOSHLAB #:[id number] AGE/SX: 65/F ROOM: RE07/23/[address]: Monse Cason APRN : 1960 BED: DIS: 07/23/2025 SPEC #: [id number] RECD: 07/23/25 15:02 STATUS: RIDDHI REKalia #: [id number] SCARLET: 07/23/25 12:[address]: Monse Cason DEPT: [facility] Consult RECD BY: Claudio Betancourt MLT, ([facility]) ENTERED: 07/23/25 15:05 SP TYPE: Consult OTHR DR: Reagan Rogers DO Tissues: A - Smear Procedures: Hematology Consult
[2025-07-23 17:39] LABS: Hematocrit 42.2 % (37.0-47.0); Hemoglobin 13.7 g/dL (12.0-15.0); Immature Granulocyte Percent A 0.2 % (0-0.5); Lymphocytes Absolute Auto 1.55 K/mm3 (0.9-3.2); Mean Corpuscular HGB Conc 32.5 g/dl (32-36); Mean Corpuscular Hemoglobin 32.2 pg (26-34); Mean Corpuscular Volume 99.3 fl (80-100); Nucleated Red Blood Cells Absolute Auto 0.000 K/mm3 (0.0-0.012); Nucleated Red Blood Cells Perc 0.0 % (0.0-0.2); Platelet Count Result 214 k/mm3 (150-375); Red Blood Count 4.25 M/mm3 (4.2-5.4); White Blood Count 5.9 K/mm3 (4.5-10.0)
== END 2025-07-23 12:41 | disposition home or self-care (01) ==
LOC: ANHGOSHLAB 12:41
PROVIDERS: PCP Internal Medicine
DX: R79.89 Other specified abnormal findings of blood chemistry (principal)
CPT/HCPCS: 36415; 85025

== ENCOUNTER 2025-08-23 12:33 | Outpatient (CLI) | payer MEDICARE, SELFPAY ==
--- OUTSIDE RECORDS SUMMARY | 2025-08-23 13:41 | XMS_ITS | Clinical Summary ---
Author Organization [facility] Address [address] [place] [address] Care Team Providers Care Authors Motivational Name Role Phone Aldo Trinh MD Primary Care Provider [phone] [facility],non-owned Affiliates and Associated Physician Practices is amultiple site organization consisting of ambulatory clinics and hospital sitesin [place], [place] and [place]. This disclosure is being madepursuant to the Care Everywhere program and may not contain all information available regarding this patient. Last updated 18.[facility] Allergies No known active allergies Medications * [...] on file Legal Sex Female 6:16 AM INFANT NANNY Gender Identity Not on file Sexual Orientation Not on file Last Filed Vital Signs Vital Sign Reading Time Taken Comments Blood Pressure 118/72 01/20/2021 9:57 AM CDT Pulse 90 01/20/2021 9:57 AM CDT Temperature 36.8 C (98.2 F) 01/20/2021 9:57 AM CDT Respiratory Rate 20 11/14/2020 9:58 AM INFANT NANNY Oxygen Saturation 98% 10/05/2019 3:49 PM INFANT NANNY Inhaled Oxygen Concentration - - Weight 69.9 [...] 04/20/1978 DTAP/TDAP/TD VACCINES (1 - Tdap) 1979 Cervical Cancer Screening 1981 PAP SMEAR 1981 PAP with HPV 1990 PNEUMOCOCCAL VACCINE 50+ (1 of 1 - PCV) 2010 ZOSTER VACCINE (1 of 2) 2010 DEPRESSION SCREENING 09/23/2024 MEDICARE AWV CALENDAR YEAR 2024 COVID-19 VACCINE (3 - 2024-2 6 season) [...] patient's age to complete this topic Insurance [facility] AETNA MEDICARE ADV SELF PAY NO INSURANCE Member Subscriber Plan / Payer (Ef fective for All Dates) Name:Maryana Dumont Member ID:Not on file Relation to Subscriber:Not on file Name:MARYANA DUMONT Subscriber ID:Not on file (Home) Address: [place] [address] Payer ID:Not on file Group ID:Not on file Type:Self Pay Address: [place], [place] Care Teams Authors Motivational Relationship Specialty Start Date End Date Aldo Trinh MD [address] [place] [id number] PCP - General Family Medicine 10/05/17
--- OUTSIDE RECORDS SUMMARY | 2025-08-23 13:41 | XMS_ITS | Clinical Summary ---
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
--- OUTSIDE RECORDS SUMMARY | 2025-08-23 13:41 | XMS_ITS | Clinical Summary ---
Author Organization [facility] Address [address] [place] [address] Care Team Providers Care Air Cargo Specialist Supervisor Name Role Phone Regaan Rogers DO Primary Care Provider [phone] Allergies No known active allergies Medications hydrocortisone (ANUSOL-HC) 2.5 % rectal cream 2 Active ofloxacin (FLOXIN) 0.3 % otic solution Administer 5 drops into the right ear daily 5 mL 5 Active Active Problems Problem Noted Date Diagnosed Date Other lesions of median nerve, right upper limb 11/06/2024 Dense breasts 08/30/2022 Fibrocystic breast changes 10/27/2014 Family History Medical History Relation Name Comments [...] on file 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 Gender Identity Not on file Sexual Orientation [...] Procedure Name Priority Date/Time Associated Diagnosis Comments SCREENING MAMMOGRAM BILATERAL W CURTIS Schedule Routine, Read Routine (OP Routine) 02/19/2025 9:22 AM CDT Screening mammogram, encounter for from Last 3 Months or Most Recently Relevant to Health Maintenance Results * Screening Mammogram Bilateral W Curtis (02/19/2025 [...] Most Recently Relevant to Health Maintenance Insurance [facility] Member Subscriber Plan / Payer (Ef fective 2023-Present) Name:Maryana Maria Relation to Subscriber:Self Name:Maryana Maria Payer ID:[id number] (NAIC) Type: AC Address: [facility] [id number] [id number] ANTHEM ACCESS ANTHEM ACCESS Care Teams Air Cargo Specialist Supervisor Relationship Specialty Start Date End Date Reagan Rogers DO PCP - General Internal Medicine 07/11/22
== END 2025-08-23 12:34 | disposition home or self-care (01) ==
LOC: ANHAUDASC 12:33
PROVIDERS: PCP Internal Medicine; Visit Provider Otolaryngology
DX: H90.3 Sensorineural hearing loss, bilateral (principal); H93.8X3 Other specified disorders of ear, bilateral
CPT/HCPCS: 92557; 92567

== ENCOUNTER 2025-09-20 08:02 | Emergency (ER) | payer MEDICARE, SELFPAY ==
--- NOTE | 2025-09-20 08:04 | ED_ITS ---
HPI - URI/Sore Throat General Chief Complaint: Upper Respiratory Infection Stated Complaint: Sinus Infection Symptoms Time Seen by Provider: 09/20/25 08:04 Source: patient Mode of arrival: ambulatory Limitations: no limitations History of Present Illness HPI Narrative: Maryana is a 65-year-old female patient presenting to the clinic today with complaints of possible sinus infection. She reports she has had green nasal drainage, sinus congestion, sinus pressure, and productive cough with green for approximately 9 days. She denies any fevers, chills, body aches. Denies any chest pain or shortness of breath. Has been taking Mucinex DM for her symptoms. Has taken for at home COVID test and all were negative. MD elicited complaint: sore throat and nasal congestion Related Data Allergies Allergy/AdvReac Type Severity Reaction Status Date / Time No Known Allergies Allergy Verified 09/20/25 08:11 Review of Systems Review of Systems: Pertinent positives per HPI. Patient denies any fever, chills, rash, visual changes, dizziness, shortness of breath, chest pain, palpitations, nausea, vomiting, diarrhea, constipation, abdominal pain, or any urinary issues. 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 She quit tobacco 30 years ago after smoking up to 1/4 a pack a day for 14 years. She drinks 3-4 alcoholic drinks a week. No drug use. She is full code. She nominates her to be the individual who would make medical decisions for her if she is unable. Years smoked: 10 Smoking status: Former smoker Tobacco type: cigarettes Alcohol intake: current Drinks per week: 3 Alcohol use details: Beer Substance use: never Substance use type: does not use Lack of Transportation: No Lack of Food: Never True Current Housing: I Have Housing Concerned About Future Housing: No Difficulty Paying Gas/Electric Bills: No Difficulty Paying for Meds: No Currently Unemployed: No Education: Bachelor's Degree Difficulty w/ Childcare or Family Care: No Spiritual care concerns: No Comments At the time of my signature, I reviewed and agree with the nursing past medical, surgical, social, and family history. There is no relevant family history pertinent to the patient complaint. Exam Narrative: General: Well-developed, well nourished, in no apparent distress Head: Normocephalic, atraumatic Eyes: Pupils equally round and reactive to light bilaterally, EOM intact, sclera and conjunctive clear, no discharge, lids normal Ears: TMs intact and clear, ear canals clear, no drainage, grossly hearing normal. Nose: Nares patent, green nasal discharge, moderate inflammation, no sinus tenderness. Mouth: Oral pharynx red without lesions or masses, good dentition, MMM. Postnasal drip Neck: Supple, trachea midline, no enlargement of anterior or posterior cervical nodes, no thyroid masses or goiter palpable. Cardio: Regular rate and rhythm, s1 and s2 normal, no murmur appreciated. Resp: Clear to auscultation bilaterally, no rhonchi, rales, wheezing or rubs Course Course Level of Care: Express Care Visit MDM MDM Narrative Medical decision making narrative: At the time of visit patient is resting comfortably on the exam table. Patient appears to be nontoxic. Complaints of possible sinus infection. She reports she has had green nasal drainage, sinus congestion, sinus pressure, and productive cough with green for approximately 9 days. She denies any fevers, chills, body aches. Denies any chest pain or shortness of breath. Has been taking Mucinex DM for her symptoms. Has taken for at home COVID test and all were negative. On exam patient has bilateral TMs intact and clear, green nasal drainage, moderate anterior turbinate inflammation, oral pharynx with postnasal drip, lung sounds are clear, heart rates regular rate and rhythm. Plan: I suspect patient has acute bacterial rhinosinusitis. Prescription for Augmentin and prednisone was sent to the pharmacy. Supportive measures were discussed with the patient and they voiced understanding discharge instructions and agrees to treatment plan. Return precautions reviewed Differential Diagnosis Differential Diagnosis: Differential diagnostic considerations for upper respiratory infection include upper respiratory infection, croup, otitis media, sinusitis, viral infection, bronchitis, influenza, pharyngitis, strep, uvulitis. Discharge Plan Discharge Clinical Impression: Acute bacterial rhinosinusitis Patient Disposition: Home Condition: Stable Instructions: Antibiotic Form, Rhinosinusitis (ED) Additional Instructions: Take prescription medications only as prescribed-prednisone and Augmentin Increase fluids and stay well hydrated May take Tylenol or motrin as directed on bottle for pain/fever May use Flonase 1 spray in each nare daily May take OTC antihistamines such as Zyrtec or Claritin daily as directed on bottle May apply Vicks vapor rub to chest to open sinuses Sinus rinses for congestion Cepacol spray, cough drops, throat lozenges, warm tea with honey/lemon, gargle salt water to soothe throat BRAT diet for diarrhea Clear liquids x 24 hours then advance as tolerated for nausea/vomiting Go to the ED if you develop a worsening in your condition- high fever not controlled by Tylenol or Motrin, dehydration, weakness, lethargy, shortness of breath, or chest pain. Follow up with your PCP in 3-5 days if symptoms persist. Patient Language: Spanish Prescriptions: New prednisone 20 mg tablet 40 mg PO DAILY 5 Days Qty: 10 0RF amoxicillin-pot clavulanate 875-125 mg tablet 1 tablet PO Q12H 10 Days Qty: 20 0RF No Action hydrocortisone [Proctocort] 1 % cream 1 applic topical BID PRN (Reason: skin irritation) Qty: 28.4 2RF Follow-up/Referrals: Reagan Rogers DO [Primary Care Provider, Internal Medicine] Time of Disposition: 08:13 Quality NIHSS Nursing Documentation ED NIHSS nursing documentation: reviewed/agree
[2025-09-20 08:08] VITALS: BP 139/75; PULSE 92; RESP 20; TEMP 36.6; O2SAT 100
== END 2025-09-20 08:16 | disposition home or self-care (01) ==
PROVIDERS: Emergency Provider Nurse Practitioner Family; PCP Internal Medicine
DX: J01.90 Acute sinusitis, unspecified (principal); Z87.891 Personal history of nicotine dependence
CPT/HCPCS: 99213; G0463